=== PATIENT | male | born 1940 | race Caucasian/White ===

== ENCOUNTER 2018-04-23 17:24 | Inpatient (IN) | payer OTHER, MEDICARE ==
[2018-04-23] MEDS ORDERED: MAGNESIUM HYDROXIDE 8% 30 ML PO PRN (17:58)
[2018-04-23] MEDS ORDERED: MAGNES/ALUMIN/SIMET 30ML UCUP PO PRN (17:58)
[2018-04-23] MEDS ORDERED: ACETAMINOPHEN 500 MG TAB PO PRN (17:58)
[2018-04-23] MEDS: ALBUTEROL 2.5 MG/3 ML NEB SOL NEB SCH ×2 (18:00→20:08)
[2018-04-23] MEDS: IPRATROPIUM BROM 0.5MG/2.5ML NEB SCH ×2 (18:00→20:08)
[2018-04-23] MEDS: METHYLPREDNISOLONE 125 MG INJ IV SCH (18:23)
[2018-04-23] MEDS: Levofloxacin500mg IV 500 MG/100 ML BAG IV SCH (18:23)
--- NOTE | 2018-04-23 19:11 | RAD REPORT ---
EXAM DESCRIPTION: RAD - Chest Pa And Lat (2 Views) - 04/23/2018 6:41 pm CLINICAL HISTORY: COPD, shortness of breath COMPARISON: September 2011 TECHNIQUE: PA and lateral views of the chest were obtained. FINDINGS: The lungs are fibrotic as a baseline. Diaphragm is flattened with increased retrosternal s pace. Baseline fibrotic pattern has progressed since 2011. Patient has a large area of interstitial and alveolar opacification in the anterolateral left lung fi eld. This is a large lingula pneumonia. No right lung field pneumonia. A 6 mm nodular focus in the upper right lung field is probably focal scarring but can be monitored with follow-up chest film in 4 -6 months. Heart size is normal and central vasculature is within normal limits. No pleural effusion or pneumot horax seen. No acute bony finding noted. No aortic abnormality. IMPRESSION: Large lateral mid left lung field pneumonia superimposed on COPD. Fibrotic lung pattern has progressed since 2011. Small right upper lung field 6 mm nodule is probably scarring but can be monitored with follow-up yoseph st film in 4-6 months.
[2018-04-23 19:18] LABS: Absolute Lymphocytes (CBC) 1.2 K/uL (0.7-4.9); Absolute Monocytes 1.7 K/uL (0.1-1.3); Absolute Neutrophil 24.6 K/uL (1.8-8.0); Basophils % 0.1 % (0-1.3); Eosinophils % 0.3 % (0-4.4); Hematocrit 46.2 % (39.6-49.0); Lymphocytes % 4.4 % (15.3-44.8); MCH 34.4 pg (27.0-35.0); MCV 99.1 fL (80-100); MPV 9.6 fL (7.6-11.3); Monocytes % 6.1 % (3.3-12.3); RBC Red Blood Cell Count 4.67 M/uL (4.33-5.43)
[2018-04-23 19:28] LABS: Albumin 3.6 g/dL (3.4-5.0); Bilirubin Total 1.6 mg/dL (0.2-1.0); Potassium 3.7 mmol/L (3.5-5.1); Protein, Total 7.9 g/dL (6.4-8.2)
[2018-04-23 19:52] LABS: Blood Morphology Comment NOT SEEN (NOT SEEN); Platelet Estimate ADEQ; Platelets, Giant NOTED
[2018-04-23] MEDS ORDERED: POTASSIUM 25 MEQ EFFERV TAB PO ONE (20:00)
[2018-04-23] MEDS: GUAIFENESIN/DM 5 ML UCUP PO PRN (20:53)
[2018-04-23] MEDS ORDERED: ENOXAPARIN 40 MG/0.4 ML SQ SCH (21:00)
[2018-04-23] MEDS ORDERED: NA CHLORIDE 0.9% 1,000 ML IV SCH (21:00)
[2018-04-23 22:49] VITALS: BMI 26.3
[2018-04-23] MEDS: NA CHLORIDE 0.9% 1,000 ML IV SCH (23:00)
[2018-04-24] MEDS: METHYLPREDNISOLONE 125 MG INJ IV SCH ×4 (00:29→18:00)
--- NOTE | 2018-04-24 03:17 | HP ---
Date of Admission: 04/23/2018 Chief Complaint: Cough, congestion, shortness of breath. History Of Present Illness: A 77-year-old male patient with significant COPD problem called my offic e yesterday with complaints of shortness of breath and he was advised to go to emergency room, but ap parently patient decided not to go to emergency room. Today he called office again and talked to my office staff and informed office staff that he thinks he has sinus infection and requested appointmen t to come see me. After I evaluated him, decision was made to admit him to the hospital since I was concerned about pneumonia with COPD exacerbation. The patient has problem with cough, chest congesti on, coughing up greenish colored mucus with some streaks of blood, wheezing, shortness of breath, fev er, and feeling tired. All these symptoms have been going on in last few days, increasingly getting worse. After I evaluated him, I was concerned about pneumonia along with COPD exacerbation, so bolivar abdullahi was made to admit him to the hospital. Allergies: NO KNOWN ALLERGIES. Medications: Anoro Ellipta inhaler 1 puff daily, Celebrex 200 mg daily as needed for arthritis, levo cetirizine 5 mg daily as needed for allergy, aspirin 81 mg daily, montelukast 10 mg p.o. daily, multi vitamin daily, omeprazole 20 mg daily, Proventil inhaler 2 puffs every 4 hours as needed, verapamil E R 120 mg 1 capsule p.o. twice a day. Review of Systems: Constitutional: As mentioned above. Respiratory: As mentioned above. All other systems reviewed and negative. Past Surgical History: Significant for removal of melanoma from back in 2016, surgery for laceration of the right wrist in 1954, had colon cancer for which had partial colectomy in 2010, and had lower back surgery January 20, 2018. Social History: Prior history of smoking, not at present time. Use of alcohol negative. Family History: Significant for diabetes and atrial fibrillation. Past Medical History: Significant for type 2 diabetes mellitus, benign prostatic hypertrophy, hyperl ipidemia, colon cancer, gout, hypertension, allergic rhinitis, COPD. Physical Examination: Vital Signs: Temperature 98, pulse 116, respiratory rate 28, blood pressure 131/62, oxygen saturatio n 98%, height 5 feet 11 inches, weight 189 pounds. The patient, when he was seen at office prior to this admission, his oxygen saturation at office on 2 L nasal cannula oxygen was 88% to 89%. The ajit ent has home oxygen, but he was not using it, but in last 1 week or so he started using it since he s tarted having these problems. General: The patient appears weaker than normal, in mild respiratory distress. HEENT: Head atraumatic, normocephalic. Conjunctivae nonerythematous. Sclerae white. Mouth, no thr ush or edema noted. Ears/Nose, no mass, lesion, discharge noted. Neck: Supple. No JVD, lymph nodes, bruit, thyromegaly noted. Lungs: Presence of some rales noted in lower lung field with diminished air entry in left lower lung field. Heart: Normal heart sounds, no murmur or gallop. Abdomen: Soft, bowel sounds normal. No guarding, rigidity, tenderness, mass, hepatosplenomegaly, dis tention, or bruit noted. Extremities: No leg edema. No calf tenderness. Skin: No rash, ulcer, cellulitis. Lymphatics: No lymph node enlargement in neck, supraclavicular, infraclavicular region. Neuro: No focal neurological deficit. Chest: Unremarkable. External Genitalia: Deferred. Rectal: Deferred. Laboratory Data: White count 27.7, hemoglobin 16, platelets 212, 14% bands. Sodium 134, potassium 3 .7, chloride 95, bicarb 27, BUN 42, creatinine 2.80, glucose 147. Liver function tests: SGOT 71, to sim bilirubin 1.6, procalcitonin 0.42. Lactic acid level pending. Chest x-ray shows large left mid left lung pneumonia superimposed on COPD, fibrotic lung pattern progress since 2011, small right uppe r lung field 6 mm nodule. Impression: 1.Pneumonia. 2.Acute exacerbation of chronic obstructive pulmonary disease. 3.Acute renal failure. 4.Volume depletion. 5.Type 2 diabetes mellitus. 6.Hyperlipidemia. 7.Hypertension. 8.Gout. 9.Colon cancer. 10.Allergic rhinitis. Plan: Admit the patient to hospital for further evaluation and management of this problem. The ajit ent is appropriate for inpatient and is expected to spend 2 midnights in hospital. His BUN and creat inine on 04/14/2018 on outpatient basis was 18 and 0.89 respectively. Hemoglobin A1c was 5.1 at that time. White count was 6.6 on that particular day. There is significant change in all this lab data on today's blood work. The patient has significant pneumonia causing this exacerbation of chronic o bstructive pulmonary disease. We will go ahead and start deep venous thrombosis prophylaxis using Lo venox. Initially, he was started on Levaquin. Subsequently, after reviewing all the data, I have ad ded Zosyn. We will follow up on blood culture as well as sputum culture. IV steroid methylprednisol one was started. Nebulizer treatment will be given. Oxygen will be given per order. IV fluid was s tarted and I will see him tomorrow morning for followup. We will go ahead and order a CAT scan of th e chest without contrast during this admission. ZO/MODL Voice ID: [id number]
[2018-04-24] MEDS: ALBUTEROL 2.5 MG/3 ML NEB SOL NEB SCH ×6 (03:21→20:45)
[2018-04-24] MEDS: IPRATROPIUM BROM 0.5MG/2.5ML NEB SCH ×6 (03:21→20:45)
[2018-04-24 04:07] LABS: Absolute Monocytes 0.8 K/uL (0.1-1.3); Absolute Neutrophil 20.5 K/uL (1.8-8.0); Basophils % 0.1 % (0-1.3); Hematocrit 42.1 % (39.6-49.0); Lymphocytes % 4.6 % (15.3-44.8); MCH 34.8 pg (27.0-35.0); MCV 100.1 fL (80-100); MPV 9.2 fL (7.6-11.3); Monocytes % 3.5 % (3.3-12.3); RBC Red Blood Cell Count 4.21 M/uL (4.33-5.43)
[2018-04-24 04:33] LABS: Potassium 4.2 mmol/L (3.5-5.1)
[2018-04-24] MEDS: NA CHLORIDE 0.9% 1,000 ML IV SCH ×2 (05:39→09:00)
[2018-04-24 07:14] LABS: Urine Appearance TURBID; Urine Bilirubin NEGATIVE (NEG); Urine Blood 3+ (NEG); Urine Color DK YELLOW; Urine Glucose NEGATIVE (NEG); Urine Protein 1+ (NEG); Urine Urobilinogen 0.2 mg/dL (0.2-1.0)
[2018-04-24 07:23] LABS: Urine Microscopic Reflex ORDER UMIC
[2018-04-24 07:57] LABS: Urine Amorphous Sediment 2+ /HPF (NONE SEEN); Urine Bacteria NONE SEEN /HPF (NONE SEEN); Urine Culture Reflex Order NOT NEEDED; Urine Mucus HEAVY /HPF (NONE SEEN)
[2018-04-24] MEDS ORDERED: INFLUENZA VACCINE (for 3y+) 0.5 ML DOSE IMVAC ONE (08:00)
--- NOTE | 2018-04-24 10:26 | RAD REPORT ---
EXAM DESCRIPTION: CT - Thorax Wo Con - 04/24/2018 9:44 am CLINICAL HISTORY: sob COMPARISON: April 23 chest x-ray TECHNIQUE: Computed axial tomography of the chest was obtained. Contrast was not requested. All CT scans are performed using dose optimization technique as appropriate and may include automated exposure control or mA/KV adjustment according to patient size. FINDINGS: The evaluation of mediastinum, mona and vessels is limited secondary to lack of IV contras t administration. A left upper lobe consolidation measures approximately 8 centimeters. Mild left lower lobe consolidat ion. Right upper lobe granuloma with a mild bilateral pulmonary scarring. Moderate centrilobular emphysema No mediastinal or hilar lymphadenopathy is seen. A pleural effusion is not present. A pericardial effusion is not seen. Coronary arterial calcificatio ns are noted. IMPRESSION: Left upper lobe consolidation with mild left lower lobe opacities consistent with pneumo sussy. This should be followed until it is clear to exclude a post obstructive process/underlying mass COPD
[2018-04-24] MEDS: GUAIFENESIN/DM 5 ML UCUP PO PRN (15:53)
[2018-04-24] MEDS ORDERED: METOPROLOL TARTRATE 5 MG/5 ML INJ IV STA (16:52)
[2018-04-24] MEDS: Levofloxacin500mg IV 500 MG/100 ML BAG IV SCH (18:00)
[2018-04-24] MEDS: SOTALOL HCL 80 MG TAB PO SCH (18:07)
[2018-04-24] MEDS: PIPER/TAZO/NS 2.25gm 2.25 GM/50 ML BAG IVPB SCH (21:44)
[2018-04-24] MEDS: ENOXAPARIN 100 MG/ML SYR SQ SCH (21:45)
[2018-04-25] MEDS: NA CHLORIDE 0.9% 1,000 ML IV SCH ×3 (00:06→15:34)
[2018-04-25] MEDS: METHYLPREDNISOLONE 125 MG INJ IV SCH ×2 (00:06→05:10)
[2018-04-25] MEDS: GUAIFENESIN/DM 5 ML UCUP PO PRN ×3 (00:09→21:30)
[2018-04-25] MEDS: ALBUTEROL 2.5 MG/3 ML NEB SOL NEB SCH ×6 (00:20→19:57)
[2018-04-25] MEDS: IPRATROPIUM BROM 0.5MG/2.5ML NEB SCH ×6 (00:20→19:57)
[2018-04-25] MEDS: PIPER/TAZO/NS 2.25gm 2.25 GM/50 ML BAG IVPB SCH ×3 (02:31→17:59)
[2018-04-25 04:58] LABS: Absolute Lymphocytes (CBC) 0.5 K/uL (0.7-4.9); Absolute Monocytes 0.8 K/uL (0.1-1.3); Absolute Neutrophil 11.9 K/uL (1.8-8.0); Basophils % 0.1 % (0-1.3); Hematocrit 41.4 % (39.6-49.0); Lymphocytes % 3.8 % (15.3-44.8); MCH 34.1 pg (27.0-35.0); MCV 99.5 fL (80-100); MPV 9.6 fL (7.6-11.3); Monocytes % 6.1 % (3.3-12.3); RBC Red Blood Cell Count 4.16 M/uL (4.33-5.43)
[2018-04-25 05:07] LABS: Magnesium 2.6 mg/dL (1.8-2.4); Potassium 4.3 mmol/L (3.5-5.1)
[2018-04-25] MEDS: SOTALOL HCL 80 MG TAB PO SCH ×2 (05:08→18:00)
--- NOTE | 2018-04-25 07:19 | EKG ---
Test Date: 2018-04-24 Test Time: 16:17:45 Personal Support Worker: JAVED MEASUREMENT RESULTS: Intervals: Rate: 144 OK: QRSD: 86 QT: 266 QTc: 411 Ralls: P: OK: QRS: 61 T: -48 INTERPRETIVE STATEMENTS: Atrial fibrillation with rapid ventricular response Nonspecific ST and T wave abnormality, probably digitalis effect Abnormal ECG Compared to ECG 06/05/2010 13:21:45 ST (T wave) deviation now present Sinus bradycardia no longer present Electronically Signed On 04-25-18 07:19:01 INFORMATION SYSTEMS PROJECT MANAGER by Herbert Cary
[2018-04-25] MEDS: ENOXAPARIN 100 MG/ML SYR SQ SCH ×2 (09:00→20:29)
[2018-04-25] MEDS: predniSONE 20 MG TAB PO SCH ×2 (09:00→20:29)
--- NOTE | 2018-04-25 13:19 | CON ---
Attending Physician: Dr. Forte. Reason For Consult: AFib. History Of Present Illness: Mr. Ca developed AFib in the hospital, it happened to occur while he was taking an albuterol treatment. He is admitted for pneumonia. There seems to be an infiltrate in his left lung. He has had fevers, chills, cough, hemoptysis. He has a background of obstructive tommy ng disease. He has not smoked in more than [address] and chest x-ray indicate left upper and low er lobe opacities. We do not rule out that this is a mass with a postobstructive process. The patie nt has never had any heart disease. He takes lung treatments from his physicians, both Dr. Forte and the doctors at the [facility]. Medications: Outpatient medications have been omeprazole, Spiriva, albuterol, verapamil, acetaminoph en, aspirin, multivitamin, Claritin, celecoxib, iron fumarate, and Flonase. Physical Examination: General: 5 feet 11 inches, 189 pounds. HEENT: Normal. Lungs: Clear. Heart: Exam reveals an irregularly irregular rhythm. No significant murmur or gallop. Abdomen: Soft. Extremities: No edema. The patient is on enoxaparin 90 b.i.d. and sotalol 80 b.i.d. now. An echocardiogram is ordered. Impression: We should give the sotalol at least another 24 hours to work. If it has not reverted hi s rhythm back to normal, we can do a cardioversion. But at this point, we will stay with Lovenox, Be tapace and see how it turns out. He is asymptomatic with atrial fibrillation. His heart rate is close to 1 00 beats per minute. AMANDA/LULA Voice ID: [id number] Report ID: [id number]
--- NOTE | 2018-04-25 13:48 | ECHO ---
HEIGHT: 5 ft 11 in WEIGHT: 189 lb 0 oz DATE OF STUDY: 04/25/[address]: Rogers Forte MD 2-DIMENSIONAL: YES M.MODE: YES DOPPLER: YES COLOR FLOW: YES TDS: PORTABLE: DEFINITY: BUBBLE STUDY: DIAGNOSIS: ATRIAL FIBRILLATION CARDIAC HISTORY: CATHERIZATION: NO SURGERY: NO PROSTHETIC VALVE: NO PACEMAKER: NO MEASUREMENTS (cm) DIASTOLIC (NORMALS) SYSTOLIC (NORMALS) IVSd 1.0 (0.6-1.2) LA Diam 4.5 (1.9-4.0) LVEF 51% LVIDd 3.5 (3.5-5.7) LVIDs 2.6 (2.0-3.5) %FS 26% LVPWd 1.2 (0.6-1.2) Ao Diam 3.1 (2.0-3.7) 2 DIMENSIONAL ASSESSMENT: RIGHT ATRIUM: DILATED LEFT ATRIUM: DILATED RIGHT VENTRICLE: NORMAL LEFT VENTRICLE: NORMAL TRICUSPID VALVE: NORMAL MITRAL VALVE: NORMAL PULMONIC VALVE: NORMAL AORTIC VALVE: NORMAL PERICARDIAL EFFUSION: NONE AORTIC ROOT: NORMAL LEFT VENTRICULAR WALL MOTION: NORMAL DOPPLER/COLOR FLOW: MILD TRICUSPID REGURGITATION. MILD PULMONARY HYPERTENSION. ESTIMATED RIGHT VENTRICULAR SYSTOLIC PRESSURE 38 mmHg. COMMENTS: NORMAL LEFT VENTRICULAR EJECTION FRACTION. DILATED LEFT AND RIGHT ATRIUM. MILD TRICUSPID REGURGITATION. MILD PULMONARY HYPERTENSION. ATRIAL FIBRILLATION. 120 BEATS PER MINUTE. TECHNOLOGIST: VEE ARTEAGA
[2018-04-25] MEDS: Levofloxacin500mg IV 500 MG/100 ML BAG IV SCH (18:01)
--- NOTE | 2018-04-25 18:25 | PN ---
Date of Progress Note: 04/24/2018 Subjective: The patient was seen this morning for followup. No new complaints or problems reported. He feels little bit better compared to yesterday. Objective: Vital Signs: Reviewed. HEENT: Unremarkable. Lungs: No evidence of any wheezing, but has diminished air entry in the left lower lung field, uncha nged from yesterday. Not using accessory muscles of respiration. Some rales noted in lung. Heart: Sounds normal. Abdomen: Soft. Bowel sounds normal. No guarding, rigidity, tenderness, or distention. Extremities: No leg edema. Laboratory Data: White count 22.3 today, hemoglobin 14.6, platelets 192. Sodium 136, potassium 4.2, chloride 98, bicarb 29, BUN 47, creatinine 2.20, glucose 179. Impression: 1.Pneumonia. 2.Acute exacerbation of chronic obstructive pulmonary disease. 3.Acute renal failure, improving. Plan: We will go ahead and continue current medications. Continue IV fluid, current antibiotics. Pankaj alfonso up on culture results. After I saw him in the morning, later on in the time or so patient went into atrial fibrillation with rapid ventricular rate. His heart rate was around 150 systolic, blood pressure was around 140. Lopressor 5 mg slow IV push was ordered x1 dose. Cardiology consultation was ordered. We will get echocardiogram done tomorrow and Lovenox dose was increased from prophylactic dose to therapeutic dose. I will see him tomorrow for followup. ZO/MODL Voice ID: [id number] Report ID: [id number]
[2018-04-25] MEDS ORDERED: HOME MED 1 EA UNK (Omeprazole [Omeprazole] 20 MG) PO SCH (21:00)
--- NOTE | 2018-04-25 23:39 | PN ---
Date of Progress Note: 04/25/2018 Subjective: The patient was seen this morning for followup. No new complaints, problems reported by patient. Overall he feels better. Objective: Vital Signs: Reviewed. HEENT: Unremarkable. Lungs: Clear to auscultation on the right side. Left side, improved air entry in the left lung fiel d. Not using any accessory muscles of respiration. Heart: Sounds normal. Abdomen: Soft. Bowel sounds normal. No guarding, rigidity, tenderness, or distention. Extremities: No leg edema. Laboratory Data: The patient's blood culture is growing gram-positive cocci. Definite identificatio n and sensitivity result pending. White count down to 13.2, hemoglobin 14.2, platelets 223. Sodium 140, potassium 4.3, chloride 106, bicarb 27, BUN 40, creatinine 1.10, glucose 166. Procalcitonin lev el is 8.04 which is much better than day before yesterday. Impression: 1.Pneumonia. 2.Acute exacerbation of chronic obstructive pulmonary disease. 3.Sepsis. 4.Acute renal failure. 5.Atrial fibrillation. Plan: Patient had echocardiogram done today per order, shows ejection fraction normal at 51%. Cardi ology consultation is appreciated. Head Banquet Waitress has started the patient on sotalol and we will go ah ead and continue to follow with reimbursement liaison. I will see him tomorrow for followup. I have disconti nued his IV steroid and oral prednisone was started. We will continue Lovenox 90 mg subcutaneous injection every 12 hours and I will see him jeffry orrow for followup. ZO/MODL Voice ID: [id number] Report ID: [id number]
[2018-04-26] MEDS: ALBUTEROL 2.5 MG/3 ML NEB SOL NEB SCH ×6 (00:37→20:26)
[2018-04-26] MEDS: IPRATROPIUM BROM 0.5MG/2.5ML NEB SCH ×6 (00:37→20:26)
[2018-04-26] MEDS: PIPER/TAZO/NS 2.25gm 2.25 GM/50 ML BAG IVPB SCH ×3 (01:04→17:00)
[2018-04-26] MEDS: NA CHLORIDE 0.9% 1,000 ML IV SCH ×3 (01:04→20:04)
[2018-04-26] MEDS: SOTALOL HCL 80 MG TAB PO SCH ×2 (05:02→18:12)
[2018-04-26] MEDS: PANTOPRAZOLE 40MG TABLET PO SCH ×2 (07:30→14:42)
[2018-04-26] MEDS: ENOXAPARIN 100 MG/ML SYR SQ SCH ×2 (09:47→20:05)
[2018-04-26] MEDS ORDERED: FLUMAZENIL 0.1 MG/ML (5 mL VIAL) IV ONE (10:38)
[2018-04-26] MEDS ORDERED: MIDAZOLAM HCL 2 MG/2 ML INJ ONE ×2 (10:38)
--- NOTE | 2018-04-26 12:22 | PN ---
Date of Progress Note: 04/26/2018 Subjective: The patient was seen this morning for followup. Overall, he feels better. He is not co ughing up any mucus as he says. Breathing seems to be better. Still has rapid and irregular heartbe ats due to atrial fibrillation. No nausea, no vomiting. Objective: Vital signs: Reviewed. HEENT: Unremarkable. Lungs: Clear to auscultation. No rhonchi or rales. Improved air entry in the left lower lung zones , even compared to yesterday he has better air entry today. Not using any accessory muscles of respi ration. Heart: Sounds normal. Abdomen: Soft. Bowel sounds normal. No guarding, rigidity, tenderness, or distention. Extremities: No leg edema. Laboratory Data: Blood culture gram-positive cocci. Definite identification and sensitivity result pending. Impression: 1.Pneumonia. 2.Atrial fibrillation with rapid ventricular rate. 3.Acute exacerbation of chronic obstructive pulmonary disease. 4.Acute renal failure. Plan: We will go ahead and repeat blood work tomorrow. We will get a chest x-ray today. Dr. Cary is planning to do cardioversion today. The patient is n.p.o. for that. We will continue current an tibiotics and final choice of antibiotic will depend on blood culture results which is pending. ZO/MODL Voice ID: [id number] Report ID: [id number]
[2018-04-26] MEDS ORDERED: NA CHLORIDE 0.9% 500 ML IV ONE (12:26)
[2018-04-26] MEDS: GUAIFENESIN/DM 5 ML UCUP PO PRN ×2 (14:41→20:07)
[2018-04-26] MEDS: predniSONE 20 MG TAB PO SCH ×2 (14:42→20:05)
[2018-04-26] MEDS: Levofloxacin500mg IV 500 MG/100 ML BAG IV SCH (18:11)
--- NOTE | 2018-04-26 19:55 | RAD REPORT ---
EXAM DESCRIPTION: RAD - Chest Pa And Lat (2 Views) - 04/26/2018 7:46 pm CLINICAL HISTORY: pneumonia Chest pain. COMPARISON: Chest Pa And Lat (2 Views) dated 04/23/2018; CHEST PA AND LAT 2 VIEW dated 10/04/2011; CH EST PA AND LAT 2 VIEW dated 06/05/2010; CHEST PA AND LAT 2 VIEW dated 09/01/2004 FINDINGS: Prominent COPD is again noted. The left mid lung pneumonia previously noted has mildly imp roved. The heart is normal in size. No displaced fractures. Aortic atherosclerosis. IMPRESSION: Mild improvement in left lung pneumonia since prior study.
--- NOTE | 2018-04-26 21:58 | OP ---
Surgeon: Herbert Cary MD Procedure: Direct current cardioversion. Indication: Persistent atrial fibrillation. Procedure In Detail: The patient received Lovenox since the onset of atrial fibrillation and Betapac e. He had received those within a few hours of the procedure. He was transferred to the ICU tempora rily sedated with Versed 5 mg IV. Once titrated to an adequate level of sedation, anterior-posterior paddles were on the patient's chest. A single shock of 200 joules was given. This reverted his rhy thm to sinus. No complications from the procedure. AMANDA/LULA Voice ID: [id number] Report ID: [id number]
[2018-04-27] MEDS: PIPER/TAZO/NS 2.25gm 2.25 GM/50 ML BAG IVPB SCH ×3 (00:19→16:22)
[2018-04-27] MEDS: ALBUTEROL 2.5 MG/3 ML NEB SOL NEB SCH ×6 (01:03→20:00)
[2018-04-27] MEDS: IPRATROPIUM BROM 0.5MG/2.5ML NEB SCH ×6 (01:04→20:00)
[2018-04-27] MEDS: SOTALOL HCL 80 MG TAB PO SCH ×2 (05:03→17:23)
[2018-04-27 06:29] LABS: Absolute Lymphocytes (CBC) 0.6 K/uL (0.7-4.9); Absolute Monocytes 1.2 K/uL (0.1-1.3); Absolute Neutrophil 10.1 K/uL (1.8-8.0); Basophils % 0.1 % (0-1.3); Hematocrit 42.2 % (39.6-49.0); Lymphocytes % 5.3 % (15.3-44.8); MCH 34.3 pg (27.0-35.0); MCV 101.4 fL (80-100); MPV 9.5 fL (7.6-11.3); Monocytes % 9.8 % (3.3-12.3); RBC Red Blood Cell Count 4.17 M/uL (4.33-5.43)
[2018-04-27] MEDS: NA CHLORIDE 0.9% 1,000 ML IV SCH (06:48)
[2018-04-27 06:55] LABS: Magnesium 2.6 mg/dL (1.8-2.4); Potassium 4.3 mmol/L (3.5-5.1)
[2018-04-27] MEDS: PANTOPRAZOLE 40MG TABLET PO SCH (08:29)
[2018-04-27] MEDS: predniSONE 20 MG TAB PO SCH ×2 (08:30→20:42)
[2018-04-27] MEDS: ENOXAPARIN 100 MG/ML SYR SQ SCH ×2 (08:30→20:42)
[2018-04-27] MEDS: AMLODIPINE 5 MG TAB PO SCH (10:25)
[2018-04-27] MEDS ORDERED: FUROSEMIDE 20 MG/ 2ML VIAL IV ONE ×2 (11:00→17:00)
--- NOTE | 2018-04-27 16:12 | PN ---
Date of Progress Note: 04/27/2018 Subjective: The patient was seen this morning for followup and he is still coughing up some colored mucus which is greenish in color with some streaks of blood in it. The patient reported today that aldo hillman is not able to walk as much as he did without getting short of breath. The patient says that on rst day he was able to make the whole [place] on the hallway, on the floor; next day, only half a circ le; and today just from his room to the corner and had to come back because of shortness of breath. His oxygen saturation drops also when he tries to ambulate and gets short of breath. Yesterday, he d id have cardioversion and he is in sinus rhythm now. Objective: Vital Signs: Reviewed. HEENT: Examination unremarkable. Lungs: Clear to auscultation. No rhonchi or rales. Not in respiratory distress. Improved air entr y in left lung, unchanged from yesterday. Heart: Sounds normal. Abdomen: Soft. Bowel sounds normal. No guarding, rigidity, tenderness, or distention. Extremities: No leg edema. Laboratory Data: White count 11.9, hemoglobin 14.3, platelets 261. Sodium 139, potassium 4.3, chlor karmen 104, bicarb 31, BUN 38, creatinine 0.90. Glucose 142. Impression: 1.Pneumonia. 2.Acute exacerbation of chronic obstructive pulmonary disease. 3.Acute renal failure, improved. 4.Paroxysmal atrial fibrillation, status post cardioversion to normal sinus rhythm. 5.Hypertension. Plan: The patient's blood pressure was elevated this morning. We will go ahead and start him on aml odipine 5 mg p.o. daily. Continue his sotalol and Lovenox per order. We will go ahead and continue his current antibiotics. His repeat chest x-ray from yesterday shows improvement in pneumonia. We w ill repeat blood work tomorrow including procalcitonin. We will discontinue his IV fluid and give hi m 1 dose of Lasix IV 20 mg today, and we will decide whether he needs more Lasix tomorrow or not. De tails and plan of treatment discussed with the patient. His blood culture, which was reported as gra m-positive cocci, is false positive, a skin contaminant. ZO/MODL Voice ID: [id number] Report ID: [id number]
[2018-04-27] MEDS: Levofloxacin500mg IV 500 MG/100 ML BAG IV SCH (16:50)
--- NOTE | 2018-04-27 16:52 | EKG ---
Test Date: 2018-04-26 Test Time: 11:24:58 Mineral Surveyor: OG MEASUREMENT RESULTS: Intervals: Rate: 78 TX: 186 QRSD: 94 QT: 394 QTc: 449 [place]: P: 70 TX: 186 QRS: 66 T: 67 INTERPRETIVE STATEMENTS: Normal sinus rhythm Normal ECG Compared to ECG 04/24/2018 16:17:45 Atrial fibrillation no longer present ST (T wave) deviation no longer present Electronically Signed On 04-27-18 16:50:42 STUDY ABROAD ADVISOR by Herbert Cary
[2018-04-27] MEDS: GUAIFENESIN/DM 5 ML UCUP PO PRN (20:44)
[2018-04-28] MEDS: PIPER/TAZO/NS 2.25gm 2.25 GM/50 ML BAG IVPB SCH ×3 (01:36→17:18)
[2018-04-28] MEDS: ALBUTEROL 2.5 MG/3 ML NEB SOL NEB SCH ×6 (02:15→20:00)
[2018-04-28] MEDS: IPRATROPIUM BROM 0.5MG/2.5ML NEB SCH ×6 (02:15→20:00)
[2018-04-28 05:01] LABS: Absolute Lymphocytes (CBC) 0.7 K/uL (0.7-4.9); Absolute Monocytes 0.7 K/uL (0.1-1.3); Absolute Neutrophil 10.4 K/uL (1.8-8.0); Basophils % 0.1 % (0-1.3); Hematocrit 44.5 % (39.6-49.0); Lymphocytes % 5.6 % (15.3-44.8); MCH 33.9 pg (27.0-35.0); MCV 98.9 fL (80-100); MPV 9.4 fL (7.6-11.3); Monocytes % 6.1 % (3.3-12.3)
[2018-04-28 05:11] LABS: BUN Blood Urea Nitrogen 31 mg/dL (7-18); Bicarbonate 40 mmol/L (21-32); Glucose Level 146 mg/dL (74-106); Magnesium 2.2 mg/dL (1.8-2.4); Potassium 3.8 mmol/L (3.5-5.1); Sodium Level 138 mmol/L (136-145)
[2018-04-28 06:11] LABS: Blood Morphology Comment NOT SEEN (NOT SEEN); Platelet Estimate ADEQ
[2018-04-28] MEDS: SOTALOL HCL 80 MG TAB PO SCH ×2 (06:36→17:20)
[2018-04-28] MEDS: PANTOPRAZOLE 40MG TABLET PO SCH (07:30)
[2018-04-28] MEDS ORDERED: MAGNESIUM HYDROXIDE 8% 30 ML PO ONE (07:54)
[2018-04-28] MEDS ORDERED: POTASSIUM 25 MEQ EFFERV TAB PO ONE (09:00)
[2018-04-28] MEDS ORDERED: DULERA 200/5 (MOMETASONE/FORMOTEROL) INHALER IH SCH (09:00)
[2018-04-28] MEDS: AMLODIPINE 5 MG TAB PO SCH (09:16)
[2018-04-28] MEDS: predniSONE 20 MG TAB PO SCH ×2 (09:17→20:56)
[2018-04-28] MEDS: ENOXAPARIN 100 MG/ML SYR SQ SCH ×2 (09:17→22:42)
--- NOTE | 2018-04-28 10:24 | RAD REPORT ---
EXAM DESCRIPTION: Duane Segundo (2 Views)04/28/2018 9:32 am CLINICAL HISTORY: Cough COMPARISON: April 26 FINDINGS: Mild improvement in the left pneumonia. No other change noted IMPRESSION: Mild improvement left pneumonia
[2018-04-28] MEDS: Levofloxacin500mg IV 500 MG/100 ML BAG IV SCH (17:48)
[2018-04-28] MEDS: SYMBICORT 160-4.5 MCG INHALER IH SCH (20:57)
[2018-04-29] MEDS: PIPER/TAZO/NS 2.25gm 2.25 GM/50 ML BAG IVPB SCH ×3 (01:06→17:59)
--- NOTE | 2018-04-29 01:35 | PN ---
Date of Progress Note: 04/28/2018 Subjective: The patient was seen this morning for followup. He does not feel any better than yester day. Still has lot of cough, mucus production, and shortness of breath like he described yesterday. No new complaints, problems reported. The patient reported also that he had only 2 bowel movements since he has been in hospital. No abdominal pain, nausea, vomiting. Objective: Vital Signs: Reviewed. HEENT: Unremarkable. Lungs: No rhonchi or rales. Heart: Sounds normal. Abdomen: Soft. Bowel sounds normal. No guarding, rigidity, tenderness, or distention. Extremities: No leg edema. Laboratory Data: White count 11.8, hemoglobin 15.2, platelets 288. Sodium 138, potassium 3.8, chlor karmen 93, bicarb 40, BUN 31, creatinine 0.80, glucose 146, procalcitonin 0.62. Chest x-ray, improvemen t in pneumonia. Impression: 1.Pneumonia. 2.Acute exacerbation of chronic obstructive pulmonary disease. 3.Paroxysmal atrial fibrillation. 4.Hypertension. Plan: We will go ahead and continue current antibiotic. The patient is improving well as far as rad iological improvement is concerned. We will continue Lovenox per order. Continue current antihypert ensive medication including amlodipine per order and continue current antibiotic. The patient is on prednisone 20 mg twice a day. We will continue that, continue sotalol per order. We will go ahead a nd add to inhaler 1 Spiriva and other inhaler is Dulera. We will see him tomorrow for followup. Ambulation was encouraged. ZO/MODL Voice ID: [id number] Report ID: [id number]
[2018-04-29] MEDS: IPRATROPIUM BROM 0.5MG/2.5ML NEB SCH ×6 (04:00→20:00)
[2018-04-29] MEDS: ALBUTEROL 2.5 MG/3 ML NEB SOL NEB SCH ×6 (04:00→20:00)
[2018-04-29] MEDS: SOTALOL HCL 80 MG TAB PO SCH ×2 (06:09→18:00)
[2018-04-29 07:22] LABS: BUN Blood Urea Nitrogen 21 mg/dL (7-18); Glucose Level 120 mg/dL (74-106); Potassium 3.7 mmol/L (3.5-5.1); Sodium Level 138 mmol/L (136-145)
[2018-04-29 07:24] LABS: Bicarbonate 43 mmol/L (21-32)
[2018-04-29] MEDS: POTASSIUM 25 MEQ EFFERV TAB PO ONE ×2 (07:58→10:37)
[2018-04-29] MEDS: SPIRIVA HANDIHALER 18 MCG IH SCH (09:00)
[2018-04-29] MEDS: SYMBICORT 160-4.5 MCG INHALER IH SCH ×2 (09:00→20:07)
[2018-04-29] MEDS: ENOXAPARIN 100 MG/ML SYR SQ SCH ×2 (10:37→20:06)
[2018-04-29] MEDS: predniSONE 20 MG TAB PO SCH ×2 (10:38→20:06)
[2018-04-29] MEDS: acetaZOLAMIDE 250 MG TAB PO SCH (10:38)
[2018-04-29] MEDS: AMLODIPINE 5 MG TAB PO SCH (10:38)
[2018-04-29] MEDS: PANTOPRAZOLE 40MG TABLET PO SCH (10:38)
--- NOTE | 2018-04-29 13:43 | PN ---
Date of Progress Note: 04/29/2018 Mr. Ca had been admitted with pneumonia, COPD exacerbation, and renal failure. He had atrial fibr illation. He had a cardioversion on 04/26/2018. He remained on sotalol and Lovenox for now. He rem ains in sinus rhythm. He is feeling good. No complaint. I feel comfortable with him going home on sotalol. I think it may be reasonable to put him on one of those Novel anticoagulants for now, and lawson hillman will decide on continuation of that therapy in the future. He can follow up with us in the next 2 weeks. WIN/LULA Voice ID: [id number] Report ID: [id number]
[2018-04-29] MEDS: Levofloxacin500mg IV 500 MG/100 ML BAG IV SCH (18:00)
[2018-04-29] MEDS: ALPRAZOLAM 0.25 MG TABLET PO SCH (20:06)
[2018-04-30] MEDS: PIPER/TAZO/NS 2.25gm 2.25 GM/50 ML BAG IVPB SCH ×3 (00:03→17:09)
--- NOTE | 2018-04-30 01:05 | PN ---
Date of Progress Note: 04/29/2018 Subjective: The patient was seen this morning for a followup. No new complaints, problems reported by him except he has reported that yesterday, first half of the day his breathing was better, he ambu lated better and later on started to have more cough, congestion and breathing difficulty. He coughs up some mucus which is significantly better now than before and hemoptysis has almost resolved. Objective: Vital signs: Reviewed. HEENT: Examination unremarkable. Lungs: Clear to auscultation. No rhonchi. No rales. Heart: Sounds normal. Abdomen: Soft. Bowel sounds normal. No guarding, rigidity, tenderness, distention. Extremities: No leg edema. Laboratory Data: Sodium 138, potassium 3.7, chloride 89, bicarb 43, BUN 21, creatinine 0.80, glucose 120. Assessment: 1.Pneumonia. 2.Acute exacerbation of chronic obstructive pulmonary disease. 3.Paroxysmal atrial fibrillation. 4.Hypertension. 5.Metabolic alkalosis. Plan: We will continue current inhaler, oxygen nebulizer treatment, antibiotics, Lovenox per order a nd the patient has metabolic alkalosis. We will not give any Lasix. He got 2 doses over the weekend and the patient and his both reported that he felt a little bit better when he took Lasix. So instead of Lasix, we will go ahead and give him acetazolamide considering his metabolic alkalosis pro blem. He is requesting some medication to help him sleep as he is not getting much rest at nighttime and alprazolam was ordered. I will see him tomorrow for followup. ZO/MODL Voice ID: [id number] Report ID: [id number]
[2018-04-30] MEDS: ALBUTEROL 2.5 MG/3 ML NEB SOL NEB SCH ×7 (04:00→23:25)
[2018-04-30] MEDS: IPRATROPIUM BROM 0.5MG/2.5ML NEB SCH ×7 (04:00→23:25)
[2018-04-30] MEDS ORDERED: POTASSIUM CL SA 10 MEQ TAB PO ONE (05:41)
[2018-04-30] MEDS: SOTALOL HCL 80 MG TAB PO SCH ×2 (06:33→18:11)
[2018-04-30] MEDS: PANTOPRAZOLE 40MG TABLET PO SCH (08:00)
[2018-04-30] MEDS: AMLODIPINE 5 MG TAB PO SCH (08:36)
[2018-04-30] MEDS: ENOXAPARIN 100 MG/ML SYR SQ SCH ×2 (08:37→20:31)
[2018-04-30] MEDS: acetaZOLAMIDE 250 MG TAB PO SCH (08:37)
[2018-04-30] MEDS: predniSONE 20 MG TAB PO SCH ×2 (08:37→20:30)
[2018-04-30] MEDS: SPIRIVA HANDIHALER 18 MCG IH SCH (08:39)
[2018-04-30] MEDS: SYMBICORT 160-4.5 MCG INHALER IH SCH ×2 (08:39→20:31)
[2018-04-30] MEDS: Levofloxacin500mg IV 500 MG/100 ML BAG IV SCH (18:12)
[2018-04-30] MEDS: ALPRAZOLAM 0.25 MG TABLET PO SCH (20:31)
--- NOTE | 2018-05-01 00:09 | PN ---
Date of Progress Note: 04/30/2018 Subjective: Patient was seen this morning for followup. His was present with him at bedside. Overall, he feels better. Yesterday he had a better day, ambulated much better than before, and afte r using alprazolam last night he slept much better than last few nights. He still had intermittent s leep last night even with alprazolam, but it was much better than last few nights. Objective: Vital Signs: Reviewed. HEENT: Examination unremarkable. Lungs: Clear to auscultation. Heart: Sounds normal. Abdomen: Soft. Bowel sounds normal. No guarding, rigidity, tenderness, or distention. Extremities: No leg edema. Impression: 1.Pneumonia. 2.Acute exacerbation of chronic obstructive pulmonary disease. 3.Hypertension. 4.Paroxysmal atrial fibrillation. 5.Metabolic alkalosis. Plan: We will go ahead and continue acetazolamide 250 mg daily, started yesterday. Continue Lovenox and antibiotics. Ambulation was encouraged with physical therapy. Continue steroid and nebulizer t reatment and inhaler per order. I will see him tomorrow for followup. Possible discharge hopefully by this weekend. ZO/MODL Voice ID: [id number] Report ID: [id number]
[2018-05-01] MEDS ORDERED: NA CHLORIDE 0.9% 100 ML ONE (00:13)
[2018-05-01] MEDS: PIPER/TAZO/NS 2.25gm 2.25 GM/50 ML BAG IVPB SCH ×3 (00:19→17:09)
[2018-05-01] MEDS: IPRATROPIUM BROM 0.5MG/2.5ML NEB SCH ×6 (04:00→23:52)
[2018-05-01] MEDS: ALBUTEROL 2.5 MG/3 ML NEB SOL NEB SCH ×6 (04:00→23:52)
[2018-05-01 04:49] LABS: Absolute Monocytes 0.5 K/uL (0.1-1.3); Absolute Neutrophil 6.8 K/uL (1.8-8.0); Basophils % 0.2 % (0-1.3); Eosinophils % 0.2 % (0-4.4); Hematocrit 46.2 % (39.6-49.0); Lymphocytes % 11.9 % (15.3-44.8); MCH 34.6 pg (27.0-35.0); MCV 100.3 fL (80-100); MPV 8.8 fL (7.6-11.3); Monocytes % 5.7 % (3.3-12.3); RBC Red Blood Cell Count 4.61 M/uL (4.33-5.43)
[2018-05-01] MEDS: GUAIFENESIN/DM 5 ML UCUP PO PRN ×3 (05:02→21:10)
[2018-05-01] MEDS: SOTALOL HCL 80 MG TAB PO SCH ×2 (05:02→18:04)
[2018-05-01 05:22] LABS: Magnesium 2.4 mg/dL (1.8-2.4)
[2018-05-01] MEDS: PANTOPRAZOLE 40MG TABLET PO SCH (08:09)
[2018-05-01] MEDS: acetaZOLAMIDE 250 MG TAB PO SCH (09:54)
[2018-05-01] MEDS: AMLODIPINE 5 MG TAB PO SCH (09:54)
[2018-05-01] MEDS: predniSONE 20 MG TAB PO SCH (09:55)
[2018-05-01] MEDS: SPIRIVA HANDIHALER 18 MCG IH SCH (09:55)
[2018-05-01] MEDS: SYMBICORT 160-4.5 MCG INHALER IH SCH ×2 (09:56→20:41)
[2018-05-01] MEDS: RIVAROXABAN 10 MG TABLET PO SCH (17:09)
[2018-05-01] MEDS: Levofloxacin500mg IV 500 MG/100 ML BAG IV SCH (18:05)
[2018-05-01] MEDS: ALPRAZOLAM 0.25 MG TABLET PO SCH (20:41)
[2018-05-02] MEDS: PIPER/TAZO/NS 2.25gm 2.25 GM/50 ML BAG IVPB SCH ×3 (01:17→17:57)
--- NOTE | 2018-05-02 02:05 | PN ---
Date of Progress Note: 05/01/2018 Subjective: The patient was seen this morning for followup. He was lying in bed, not in distress. was with him at bedside. He slept very well last night using medication, alprazolam. Yesterday , he did ambulate well with physical therapy. Still continues to have some cough, congestion, shortn ess of breath, but overall slowly improving. Objective: Vital Signs: Reviewed. HEENT: Unremarkable. Lungs: Clear to auscultation. No rhonchi or rales. Heart: Sounds normal. Abdomen: Soft, bowel sounds normal. No guarding, rigidity, tenderness, distention. Extremities: No leg edema. Laboratory Data: White count 8.3, hemoglobin 16, platelets 349. Sodium 138, potassium 4, chloride 9 9, bicarb 36, BUN 23, creatinine 1, glucose 172. Impression: 1.Pneumonia. 2.Acute exacerbation of chronic obstructive pulmonary disease. 3.Hypertension. 4.Paroxysmal atrial fibrillation. Plan: We will go ahead and continue current medication antibiotics, discontinue Lovenox injection, s tart Xarelto. We will go ahead and reduce prednisone dose to 20 mg daily. Ambulation was encouraged . We will continue current management and possible discharge to go home over the weekend depending on condition tomorrow. We will plan to repeat chest x-ray. ZO/MODL Voice ID: [id number] Report ID: [id number]
[2018-05-02] MEDS: ALBUTEROL 2.5 MG/3 ML NEB SOL NEB SCH ×6 (04:00→23:35)
[2018-05-02] MEDS: IPRATROPIUM BROM 0.5MG/2.5ML NEB SCH ×6 (04:00→23:35)
[2018-05-02] MEDS: SOTALOL HCL 80 MG TAB PO SCH ×2 (05:37→17:58)
[2018-05-02 06:22] LABS: Magnesium 2.3 mg/dL (1.8-2.4); Potassium 3.9 mmol/L (3.5-5.1)
[2018-05-02] MEDS ORDERED: POTASSIUM CL SA 10 MEQ TAB PO ONE (06:29)
[2018-05-02] MEDS: PANTOPRAZOLE 40MG TABLET PO SCH (07:31)
[2018-05-02] MEDS: AMLODIPINE 5 MG TAB PO SCH (12:02)
[2018-05-02] MEDS: acetaZOLAMIDE 250 MG TAB PO SCH (12:03)
[2018-05-02] MEDS: predniSONE 20 MG TAB PO SCH (12:03)
[2018-05-02] MEDS: SYMBICORT 160-4.5 MCG INHALER IH SCH ×2 (12:04→20:43)
[2018-05-02] MEDS: SPIRIVA HANDIHALER 18 MCG IH SCH (12:04)
--- NOTE | 2018-05-02 13:19 | RAD REPORT ---
EXAM DESCRIPTION: RAD - Chest Pa And Lat (2 Views) - 05/02/2018 1:13 pm CLINICAL HISTORY: pneumonia Chest pain. COMPARISON: Chest Pa And Lat (2 Views) dated 04/28/2018; Chest Pa And Lat (2 Views) dated 04/26/2018; Chest Pa And Lat (2 Views) dated 04/23/2018; CHEST PA AND LAT 2 VIEW dated 10/04/2011 FINDINGS: Emphysematous changes are present throughout the lungs. Poorly defined linear opacities in the left lower lung appear mildly improved. The heart is normal in size. No displaced fractures. IMPRESSION: COPD with mild improvement in left lower lung lung opacities likely representing pneumon ia.
--- NOTE | 2018-05-02 14:49 | PN ---
Date of Progress Note: 05/02/2018 Subjective: The patient was seen this morning for followup. He is feeling much better today. Some cough, congestion, coughing up some mucus, but overall feeling better in last couple of days. Objective: Vital Signs: Reviewed. HEENT: Unremarkable. Lungs: Clear to auscultation. Heart: Sounds normal. Abdomen: Soft. Bowel sounds normal. No guarding, rigidity, tenderness, distention. Extremities: No leg edema. Laboratory Data: Sodium 142, potassium 3.9, chloride 102, bicarb 38, BUN 20, creatinine 1.10, glucos e 128, magnesium 2.3. Impression: 1.Pneumonia. 2.Acute exacerbation of chronic obstructive pulmonary disease. 3.Paroxysmal atrial fibrillation. 4.Hypertension. Plan: We will continue current medications. Continue current antibiotic, steroid, oxygen nebulizer treatment. Continue current anticoagulant medication. Ambulation was encouraged. We will repeat est x-ray today. Possible discharge to go home tomorrow or day after tomorrow depending on x-ray and the patient's condition. ZO/MODL Voice ID: [id number] Report ID: [id number]
[2018-05-02] MEDS: RIVAROXABAN 10 MG TABLET PO SCH (17:57)
[2018-05-02] MEDS: Levofloxacin500mg IV 500 MG/100 ML BAG IV SCH (18:02)
[2018-05-02] MEDS: ALPRAZOLAM 0.25 MG TABLET PO SCH (20:42)
[2018-05-02] MEDS: GUAIFENESIN/DM 5 ML UCUP PO PRN (20:42)
[2018-05-03] MEDS: PIPER/TAZO/NS 2.25gm 2.25 GM/50 ML BAG IVPB SCH ×2 (00:46→08:40)
[2018-05-03] MEDS: ALBUTEROL 2.5 MG/3 ML NEB SOL NEB SCH ×3 (03:25→11:00)
[2018-05-03] MEDS: IPRATROPIUM BROM 0.5MG/2.5ML NEB SCH ×3 (03:25→11:00)
[2018-05-03] MEDS: GUAIFENESIN/DM 5 ML UCUP PO PRN ×2 (04:10→09:07)
[2018-05-03] MEDS: SOTALOL HCL 80 MG TAB PO SCH (06:17)
[2018-05-03 08:07] VITALS: BP 129/60; TEMP 96.4
[2018-05-03] MEDS: AMLODIPINE 5 MG TAB PO SCH (08:35)
[2018-05-03] MEDS: PANTOPRAZOLE 40MG TABLET PO SCH (08:35)
[2018-05-03] MEDS: predniSONE 20 MG TAB PO SCH (08:36)
[2018-05-03] MEDS: SPIRIVA HANDIHALER 18 MCG IH SCH (08:36)
[2018-05-03] MEDS: SYMBICORT 160-4.5 MCG INHALER IH SCH (08:37)
[2018-05-03] MEDS: acetaZOLAMIDE 250 MG TAB PO SCH (09:07)
[2018-05-03] MEDS ORDERED: INFLUENZA VACCINE (for 3y+) 0.5 ML DOSE IMVAC ONE (12:00)
[2018-05-03 12:38] VITALS: O2SAT 93
--- NOTE | 2018-05-04 03:31 | DS ---
Date of Discharge: 05/03/2018 Disposition: Discharged to go home. Physical Examination: HEENT: Unremarkable. Lungs: Clear to auscultation. No rhonchi. No rales. Heart: Sounds normal. Abdomen: Soft bowel sounds normal. No guarding, rigidity, tenderness, distention. Extremities: No leg edema. Instructions: 1.Follow up at my office on 05/08/2018. 2.Follow up with Dr. Cary/Dr. Tanner in 2 weeks. 3.Use nebulizer treatment as needed for shortness of breath. 4.Prednisone 10 mg, patient to take 2 tablets by mouth daily for 4 days, then 1 tablet by mouth yolande y for 4 days, then half tablet by mouth daily for 4 days then stop and patient to take this prednison e with food. Discharge Medications: 1.Continue all prior home medication except; stop aspirin, stop Celebrex, stop verapamil. 2.Take new medication; albuterol and Atrovent nebulizer treatment every 4 hours as needed for shortn ess of breath. 3.Amlodipine 5 mg p.o. daily. 4.Augmentin 875 mg twice a day for 1 week. 5.Levaquin 500 mg daily for 1 week. 6.Xarelto 20 mg daily with supper. 7.Sotalol 120 mg twice a day. 8.Continue Spiriva inhaler 1 puff daily. 9.Continue Symbicort inhaler 2 puffs twice a day. The patient was advised to rinse mouth with water after use. 10.Use clotrimazole 1 tablet by mouth 4 times a day for 10 days. Laboratory Data: Labs and investigation done during this hospitalization includes initial white coun t was 15, when he was admitted. Highest white count was 22.7 on 04/23/2018. Last white count on 10/2017 was 8.3 with last hemoglobin 16, platelets 349. Procalcitonin, when he was admitted on 04/23 was 40.42. Last procalcitonin on 04/28/2018 was 0.62. Echocardiogram done during this hospita lization shows normal ejection fraction. Hospital Course: A 77-year-old male patient admitted to the hospital after he came into office with cough, congestion, shortness of breath. Please see dictated H and P for more information. The initi al chest x-ray showed changes of COPD, fibrotic lung changes, as well as large mid left lung pneumoni a and questionable 6 mm nodule in right lung. CAT scan of the chest was done, which revealed presenc e of pneumonia in the left lung. No evidence of any lung mass or nodule noted on the CAT scan. The patient was started on antibiotics for pneumonia. Blood culture grew initially some bacteria but it turned out to be skin contaminant. Sputum culture did not grow any bacteria. The patient had a gree chadwick colored mucus with streaks of blood in it in the beginning and over period of this hospitalizati on that has improved. He had lot of shortness of breath and initially trouble walking because of milan rtness of breath and weakness, but physical therapy was consulted and as his pneumonia got better, he started ambulating. Last weekend, he started having some decline with his ability to ambulate and i ncreasing shortness of breath and we did use a couple of days of IV Lasix as we were concerned about some fluid retention in line and then he had some metabolic alkalosis with bicarb going up to 43, so Lasix was discontinued and acetazolamide 250 mg p.o. daily was started and he responded well to that. Metabolic alkalosis got corrected. The patient was given oxygen nebulizer treatment. Initially, aldo hillman was given IV steroid, which was subsequently changed to oral steroid. He was getting DVT prophylax is using Lovenox until he went into atrial fibrillation with rapid ventricular rate. At that time, h is Lovenox dose was increased to therapeutic dose. Cardiology consultation was obtained from Dr. Torsten villegas who started him on sotalol. The patient did not convert to sinus rhythm, so last weekend Dr. Torsten villegas did electrical cardioversion and the patient came to normal sinus rhythm and remained in normal s inus rhythm after that. Few days ago, we discontinued his Lovenox and started him on Xarelto [address] Tanner and Dr. Cary followed up from Cardiology point of view and the patient is medica lly stable from cardiac point of view for discharge medically. He is doing much better. Amlodipine was started for hypertension problem. Today, when I saw him, he was noted to have a little bit hoars eness of voice and upon examination of his mouth, he was noted to have significant oral candidiasis p roblem and he was advised to start clotrimazole and he was instructed about how to use this medicatio n for 10 days as prescribed. Prescription was given to patient for nebulizer machine and supplies as he does not have any nebulize r machine at home. Final Diagnoses: 1.Pneumonia. 2.Acute exacerbation of chronic obstructive pulmonary disease. 3.Acute renal failure. 4.Volume depletion. 5.Paroxysmal atrial fibrillation. 6.Oral candidiasis. 7.Hypertension. 8.Hyperlipidemia. 9.Type 2 diabetes mellitus. 10.Gout. 11.Colon cancer. 12.Allergic rhinitis. ZO/MODL Voice ID: [id number] Report ID: [id number]
== END 2018-05-03 13:41 | disposition home or self-care (01) | DRG 194 ==
LOC: 4TH 17:38
PROVIDERS: ADMIT Internal Medicine; ATTEND Internal Medicine
PROC: 5A2204Z Restoration of Cardiac Rhythm, Single (ICD-10-PCS; principal; 2018-04-26)
DX: J18.9 Pneumonia, unspecified organism (principal); E87.3 Alkalosis; B37.0 Candidal stomatitis; J44.0 Chronic obstructive pulmonary disease with (acute) lower respiratory infection; J44.1 Chronic obstructive pulmonary disease with (acute) exacerbation; N17.9 Acute kidney failure, unspecified; E86.9 Volume depletion, unspecified; I48.0 Paroxysmal atrial fibrillation; I10 Essential (primary) hypertension; E78.5 Hyperlipidemia, unspecified; E11.9 Type 2 diabetes mellitus without complications; M10.9 Gout, unspecified; J30.9 Allergic rhinitis, unspecified; Z85.038 Personal history of other malignant neoplasm of large intestine; Z87.891 Personal history of nicotine dependence; N40.0 Benign prostatic hyperplasia without lower urinary tract symptoms
CPT/HCPCS: 36415; 71046; 71250; 80048; 80053; 81003; 81015; 83605; 83735; 84132; 84145; 85025; 87040; 87070; 87205; 93005; 93306; 97110; 97116; 97163; 97530; G0008; J1650; J1940; J2250; J2930; J7030; J7512; J7606; Q2035

== ENCOUNTER 2022-07-15 18:50 | Inpatient (IN) | payer OTHER, MEDICARE ==
--- OUTSIDE RECORDS SUMMARY | 2022-07-15 18:53 | XMS REPORT | Continuity of Care Document ---
:1940 Author Organization [facility] t Address [address] [place] [address] Care Team Providers Name Role Phone [phone] Primary Care Physician Unavailable SYSTEM, PROVIDER NOT IN Attending Clinician Unavailable LIZZY VICENTE Attending Clinician Unavailable JEANNIE TERRY Attending Clinician Unavailable Payers Payer Name Policy Type Policy Number Effective Date Expiration Date S jessica MEDICARE PART A [id number] 2004 AND B 00:00:00 [facility] [id number] 2015 ONLY 00:00:00 [facility] [id number] PPO 00:00:00 00:00:00 Problems This patient has no known problems. Allergies, Adverse Reactions, Alerts This patient has no known allergies or adverse reactions. Medications This patient has no known medications. Procedures This patient has no known procedures. Encounters Start End Encounter Admission Attending Care Care Encounter Source Date/Time Date/Time Type Type Clinicians Facility Department ID 2022-04-04 Outpatient SYSTEM, MDA MDA [id number] 11:54:06 PROVIDER Rowdy o n 2021-06-29 Outpatient MDA MDA [id number] 18:19:11 Anderso n 2021-06-29 Outpatient MDA MDA [id number] 18:19:11 Anderso n 2021-06-29 Outpatient MDA MDA [id number] 18:19:10 Anderso n 2021-06-29 Outpatient MDA MDA [id number] 18:19:09 Anderso n 2021-06-29 Outpatient MDA MDA [id number] 18:19:08 Anderso n 2021-06-29 Outpatient MDA MDA [id number] 17:13:03 Anderso n 2022-04-16 2022-04-16 Outpatient VERONA VICENTE, MDA MDA [id number] 10:57:59 10:57:59 LIZZY munguia 2022-04-14 2022-04-14 Outpatient VERONA TERRY, MDA MDA [id number] 10:44:30 23:59:00 JEANNIE munguia 2022-04-11 2022-04-11 Outpatient CINTHIA, MDA MDA [id number] 13:33:24 13:33:24 LIZZY munguia 2022-04-11 2022-04-11 Outpatient CINTHIA, MDA MDA [id number] 13:33:21 13:33:21 LIZZY munguia 2022-04-11 2022-04-11 Outpatient CINTHIA, MDA MDA [id number] 13:33:17 13:33:17 LIZZY munguia 2022-04-11 2022-04-11 Outpatient HARRISON, MDA MDA [id number] 10:36:32 10:53:22 JEANNIE munguia 2022-04-11 2022-04-11 Outpatient CINTHIA, MDA MDA [id number] 09:42:46 10:40:11 LIZZY munguia 2022-04-11 2022-04-11 Outpatient CINTHIA, MDA MDA [id number] 09:37:45 09:38:37 LIZZY munguia Results This patient has no known results.
[2022-07-15 19:51] LABS: Absolute Lymphocytes (CBC) 1.7 K/uL (0.7-4.9); Hematocrit 32.6 % (39.6-49.0); Lymphocytes % 9.2 % (15.3-44.8); MPV 7.4 fL (7.6-11.3); RBC Red Blood Cell Count 3.55 M/uL (4.33-5.43)
--- NOTE | 2022-07-15 19:58 | RAD REPORT ---
EXAM DESCRIPTION: [place] Single View07/15/2022 7:40 pm CLINICAL HISTORY: Fever COMPARISON: May 2022 FINDINGS: Progression in a right basilar lung consolidation Small consolidation mid right lateral lung. No significant change in additional bilateral pulmonary opacities. COPD Heart is normal size IMPRESSION: Progression in right lung consolidations likely pneumonia COPD
[2022-07-15 20:06] LABS: Albumin 2.7 g/dL (3.4-5.0); Bilirubin Total 0.9 mg/dL (0.2-1.0); Potassium 3.7 mmol/L (3.5-5.1); Protein, Total 8.1 g/dL (6.4-8.2)
[2022-07-15 20:28] LABS: Protime INR 1.18
--- NOTE | 2022-07-15 21:01 | ER ---
Nurse's Notes [facility] Name: Hernando Ca Jr Age: 81 yrs Sex: Male : 1940 Arrival Date: 07/15/2022 Time: 18:57 Bed 15 Private MD: Diagnosis: Pneumonia, unspecified organism;Sepsis, unspecified organism Presentation: 07/15 18:57 Chief complaint: EMS states: fever x3 days, with weakness that began today. client was kc6 82% on 6L via NC at home. client is currently 93\T\ on 7L via NC. Coronavirus screen: Vaccine status: Patient reports receiving the 2nd dose of the covid vaccine. Ebola Screen: No symptoms or risks identified at this time. Initial Sepsis Screen: Does the patient meet any 2 criteria? RR > 20 per min. Does the patient have a suspected source of infection? No. Patient's initial sepsis screen is negative. Risk Assessment: Do you want to hurt yourself or someone else? Patient reports no desire to harm self or others. Onset of symptoms was July 12, 2022. 18:57 Method Of Arrival: EMS: [facility] kc6 18:57 Acuity: KEVIN 3 kc6 Triage Assessment: 18:59 General: Appears in no apparent distress. comfortable, Behavior is calm, cooperative, kc6 appropriate for age. Pain: Denies pain. EENT: No signs and/or symptoms were reported regarding the EENT system. Neuro: Subramanian Agitation-Sedation Scale (RASS): 0 - Alert and Calm Level of Consciousness is awake, alert, obeys commands, Oriented to person, place, time, situation, Appropriate for age. Cardiovascular: Capillary refill < 3 seconds. Respiratory: Airway is patent Trachea midline Respiratory effort is even, labored, Respiratory pattern is symmetrical, tachypnea. GI: No signs and/or symptoms were reported involving the gastrointestinal system. : No signs and/or symptoms were reported regarding the genitourinary system. Derm: No signs and/or symptoms reported regarding the dermatologic system. Skin is intact, Skin is pink, warm \T\ dry. Musculoskeletal: Circulation, motion, and sensation intact. Capillary refill < 3 seconds, Range of motion: intact in all extremities, Reports weakness in generalized. Historical: - Allergies: 18:59 No Known Allergies; kc6 - PMHx: 18:59 Hypertensive disorder; asbestos; Chronic obstructive lung disease; colon cancer; kc6 - Immunization history:: Client reports receiving the 2nd dose of the Covid vaccine, Flu vaccine is up to date. - Social history:: Smoking status: Patient denies any tobacco usage or history of. Screenin:01 [facility] ED Fall Risk Assessment (Adult) History of falling in the last 3 months, kc6 including since admission No falls in past 3 months (0 pts) Confusion or Disorientation No (0 pts) Intoxicated or Sedated No (0 pts) Impaired Gait No (0 pts) Mobility Assist Device Used No (0 pt) Altered Elimination No (0 pt) Score/Fall Risk Level 0 - 2 = Low Risk Oriented to surroundings, Maintained a safe environment, Educated pt \T\ family on fall prevention, incl call for assistance when getting out of bed, Assessed \T\ reinforced patient's understanding of fall precautions, Hourly rounding (assess needs \T\ fall precautionary measures) done. Abuse screen: Denies threats or abuse. Denies injuries from another. Nutritional screening: No deficits noted. Tuberculosis screening: No symptoms or risk factors identified. Vital Signs: 18:57 BP 129 / 54; Pulse 78; Resp 25 S; Temp 98.5(O); Pulse Ox 93% on 7 lpm NC; Weight 62.14 kc6 kg (R); Height 5 ft. 11 in. (180.34 cm) (R); Pain 0/10; 20:00 BP 112 / 44; Pulse 73; Resp 22; Pulse Ox 93% on 7 lpm NC; Pain 0/10; ke1 18:57 Body Mass Index 19.11 (62.14 kg, 180.34 cm) [facility] ED Course: 18:57 Patient arrived in ED. kc6 18:59 Triage completed. kc6 18:59 Arm band placed on. kc6 19:00 Grisel Maddox FNP-C [facility]. kb 19:00 Ramiro Andrea MD is Attending Physician. kb 19:02 Patient has correct armband on for positive identification. Bed in low position. Call [facility] light in reach. Side rails up X2. Adult w/ patient. 19:36 Christian Polo, MEL is Primary Nurse. ke1 19:37 CBC with Diff Sent. ke1 19:37 CMP Sent. ke1 19:37 Lactate w/ 2H reflex if indic. Sent. ke1 19:37 Protime (+inr) Sent. ke1 19:38 Inserted saline lock: 20 gauge in left antecubital area, using aseptic technique. ke1 19:56 Blood Culture Adult (2) Sent. ke1 20:10 Inserted saline lock: 20 gauge in right wrist, using aseptic technique. ke1 21:00 Chong Hernandez MD is Hospitalizing Provider. kb 23:20 No provider procedures requiring assistance completed. Patient admitted, IV remains in ke1 place. Administered Medications: 20:18 Drug: Albuterol 2.5 mg Route: Inhalation; ke1 20:18 Drug: AtroVENT (ipratropium) Aerosol 0.5 mg Route: Inhalation; ke1 20:18 Drug: SOLU-Medrol (methylPrednisoLONE) 125 mg Route: IVP; Site: right wrist; ke1 20:18 Drug: LevaQUIN (levofloxacin) 500 mg Volume: 100 ml; Route: IVPB; Infused Over: 60 ke1 mins; Site: right wrist; 21:16 Drug: NS 0.9% 500 ml Route: IV; Rate: bolus; Site: right wrist; ke1 21:16 Drug: NS 0.9% 1000 ml Route: IV; Rate: 75 ml/hr; Site: right wrist; ke1 Medication: 23:20 VIS not applicable for this client. ke1 Outcome: 21:01 Decision to Hospitalize by Provider. kb 23:20 Admitted to Med/surg accompanied by tech. ke1 23:20 Condition: good 23:20 Instructed on the need for admit. 23:20 Patient left the ED. ke1 Signatures: Grisel Maddox, CUTTER FINISHER-C DEVENDRA-Christian Manley RN RN ke1 Aspen Yung RN RN kc6 Corrections: (The following items were deleted from the chart) 19:00 18:59 PMHx: None; cheryl kc6
--- NOTE | 2022-07-15 21:01 | EDPHYS ---
Physician Documentation [facility] Name: Hernando Ca Jr Age: 81 yrs Sex: Male : 1940 Arrival Date: 07/15/2022 Time: 18:57 Bed 15 Private MD: ED Physician Ramiro Andrea HPI: 07/15 21:09 This 81 yrs old Male presents to ER via EMS with complaints of General Weakness, Fever. kb 21:09 The patient or guardian reports cough, that is intermittent, described as mild, kb difficulty breathing, flu symptoms, low-grade fever. Onset: The symptoms/episode began/occurred today. Severity of symptoms: At their worst the symptoms were moderate, in the emergency department the symptoms are unchanged. Modifying factors: The symptoms are alleviated by nothing, the symptoms are aggravated by nothing. Associated signs and symptoms: Pertinent positives: fever, Pertinent negatives: chest pain, diarrhea, ear ache, nausea, rhinorrhea, sore throat, vomiting. The patient has not experienced similar symptoms in the past. The patient has not recently seen a physician. Historical: - Allergies: 18:59 No Known Allergies; kc6 - PMHx: 18:59 Hypertensive disorder; asbestos; Chronic obstructive lung disease; colon cancer; kc6 - Immunization history:: Client reports receiving the 2nd dose of the Covid vaccine, Flu vaccine is up to date. - Social history:: Smoking status: Patient denies any tobacco usage or history of. ROS: 21:08 Abdomen/GI: Negative for abdominal pain, nausea, vomiting, diarrhea, and constipation. kb 21:08 Constitutional: Positive for fever. 21:08 Respiratory: Positive for cough, shortness of breath. 21:08 All other systems are negative. Exam: 20:32 ECG was reviewed by the Attending Physician. kb 21:08 Constitutional: This is a well developed, well nourished patient who is awake, alert, kb and in no acute distress. Head/Face: Normocephalic, atraumatic. ENT: Moist Mucous membranes Cardiovascular: Regular rate and rhythm with a normal S1 and S2. No gallops, murmurs, or rubs. No pulse deficits. Abdomen/GI: Soft, non-tender. No distention Skin: Warm, dry with normal turgor. Normal color. MS/ Extremity: Pulses equal, no cyanosis. Neurovascular intact. Full, normal range of motion. Neuro: Awake and alert, GCS 15, oriented to person, place, time, and situation. Moves all extremities. Normal gait. 21:08 Respiratory: mild respiratory distress is noted, Respirations: labored breathing, that is mild, Breath sounds: decreased breath sounds, that are mild, that are moderate, are located in both bases. Vital Signs: 18:57 BP 129 / 54; Pulse 78; Resp 25 S; Temp 98.5(O); Pulse Ox 93% on 7 lpm NC; Weight 62.14 kc6 kg (R); Height 5 ft. 11 in. (180.34 cm) (R); Pain 0/10; 20:00 BP 112 / 44; Pulse 73; Resp 22; Pulse Ox 93% on 7 lpm NC; Pain 0/10; ke1 18:57 Body Mass Index 19.11 (62.14 kg, 180.34 cm) kc6 MDM: 19:00 Patient medically screened. kb 22:46 Differential Diagnosis: Bronchitis Influenza Upper Respiratory Infection Pneumonia. kb Data reviewed: vital signs, nurses notes. Consideration of Admission/Observation Patient was admitted/placed on observation. Management of patient was discussed with the following: Hospitalist: MARAL Burdick accepts patient for admission under Dr. Hernandez. Dr. Forte is patient's PCP but is out to the hospitalist at this time.. Historians other than the Patient: Spouse/Significant Other: . Care significantly affected by the following chronic conditions: Chronic Obstructive Pulmonary Disease, Asbestosis. Counseling: I had a detailed discussion with the patient and/or guardian regarding: the historical points, exam findings, and any diagnostic results supporting the discharge/admit diagnosis, lab results, radiology results, the need for further work-up and treatment in the hospital. 22:48 ED course: Patient is an 81-year-old male with a history of COPD and asbestosis who kb presents for increased cough, shortness of breath and fever that started today. EMS reports patient was 82% on home O2 at 6 L. Patient states normal O2 sat is 89 to 90% on 6 L. On exam, mild respiratory distress with diminished lung sounds bilaterally. X-ray reveals pneumonia. Serum labs ordered and reviewed. Patient will be admitted. 22:53 Historians other than the Patient: EMS: [facility]. kb 07/15 19:01 Order name: Blood Culture Adult (2) kb 07/15 19:01 Order name: CBC with Diff kb 07/15 19:01 Order name: CMP kb 07/15 19:01 Order name: Lactate w/ 2H reflex if indic. kb 07/15 19:01 Order name: Protime (+inr) kb 07/15 19:01 Order name: Ptt, Activated kb 07/15 19:01 Order name: COVID-19/FLU A+B kb 07/15 19:53 Order name: CBC with Automated Diff; Complete Time: 19:55 EDMS 07/15 20:07 Order name: Comprehensive Metabolic Panel; Complete Time: 20:08 EDMS 07/15 20:23 Order name: Glucose, Ancillary Testing; Complete Time: 20:30 EDMS 07/15 20:28 Order name: PTT, Activated Partial Thromb; Complete Time: 20:30 EDMS 07/15 20:28 Order name: Protime (+INR); Complete Time: 20:30 EDMS 07/15 20:44 Order name: Lactate w/ 2H reflex if indic.; Complete Time: 20:50 EDMS 07/15 21:30 Order name: ABG: OK for VBG la1 07/15 19:01 Order name: Chest Single View XRAY kb 07/15 19:01 Order name: EKG; Complete Time: 19:02 kb 07/15 19:01 Order name: Accucheck; Complete Time: 20:24 kb 07/15 19:01 Order name: Cardiac monitoring; Complete Time: 20:38 kb 07/15 19:01 Order name: EKG - Nurse/Tech; Complete Time: 20:38 kb 07/15 19:01 Order name: IV Saline Lock - Large Bore; Complete Time: 19:39 kb 07/15 19:01 Order name: Labs collected and sent; Complete Time: 21:22 kb 07/15 19:01 Order name: O2 Per Protocol; Complete Time: 19:39 kb 07/15 19:59 Order name: RAD; Complete Time: 20:01 EDMS 07/15 21:44 Order name: COVID-19/FLU A+B; Complete Time: 21:57 EDMS 07/15 19:01 Order name: O2 Sat Monitoring; Complete Time: 19:39 kb 07/15 19:01 Order name: Vital Signs; Complete Time: 22:25 kb EC:32 Rate is 70 beats/min. Rhythm is regular. QRS Topmost is Normal. MI interval is normal at kb 162 msec. QRS interval is normal at 84 msec. QT interval is normal at 498 msec. Administered Medications: 20:18 Drug: Albuterol 2.5 mg Route: Inhalation; ke1 20:18 Drug: AtroVENT (ipratropium) Aerosol 0.5 mg Route: Inhalation; ke1 20:18 Drug: SOLU-Medrol (methylPrednisoLONE) 125 mg Route: IVP; Site: right wrist; ke1 20:18 Drug: LevaQUIN (levofloxacin) 500 mg Volume: 100 ml; Route: IVPB; Infused Over: 60 ke1 mins; Site: right wrist; 21:16 Drug: NS 0.9% 500 ml Route: IV; Rate: bolus; Site: right wrist; ke1 21:16 Drug: NS 0.9% 1000 ml Route: IV; Rate: 75 ml/hr; Site: right wrist; ke1 Disposition: 07/16 05:20 Co-signature as Attending Physician, Ramiro Andrea MD I reviewed the patient's care rt provided by the Advanced Practice Provider and agree with the diagnosis and treatment plan. Disposition Summary: 07/15/22 21:01 Hospitalization Ordered Hospitalization Status: Inpatient Admission kb Provider: Chong Hernandez [facility] kb Condition: Stable kb Problem: new kb Symptoms: are unchanged kb Bed/Room Type: Standard Room Assignment: 214(07/15/22 21:47) Diagnosis - Pneumonia, unspecified organism kb - Sepsis, unspecified organism kb Forms: - Medication Reconciliation Form kb - SBAR form kb Signatures: Dispatcher [employer] Grisel Segundo, EMPLOYEE RELATIONS SPECIALIST-C EMPLOYEE RELATIONS SPECIALIST-CkGennaro Sinclair EMPLOYEE RELATIONS SPECIALIST-C EMPLOYEE RELATIONS SPECIALIST-Cla1 Annmarie Rush RN RN cg Ebrottie, Kouassi, RN RN ke1 Campbell, Kaitlyn, RN RN kc6 [place], Ryan, MD MD rt Corrections: (The following items were deleted from the chart) 07/15 19:00 18:59 PMHx: None; cheryl luna 21:47 21:01 kb
[2022-07-15] MEDS ORDERED: NA CHLORIDE 0.9% 1,000 ML ONE (21:10)
--- NOTE | 2022-07-15 21:32 | P.HP ---
Certification for Inpatient Patient admitted to: Inpatient With expected LOS: >2 Midnights Patient will require the following post-hospital care: None Practitioner: I am a practitioner with admitting privileges, knowledge of patient current condition, hospital course, and medical plan of care. Services: Services provided to patient in accordance with Admission requirements found in Title 42 Section 412.3 of the Code of Federal Regulations Patient History Date of Service: 07/15/22 Reason for admission: Sepsis, pneumonia History of Present Illness: 81-year-old male with history of COPD/asbestosis on chronic, O2 at 6 L, atrial fibrillation, hypertension, GERD, gout presents to the emergency department for shortness of breath, fevers. He reports increasing shortness of breath over the course of the last 1 month, significantly worse the past 1 week. He was running fevers at home Tmax 102 per family. He was evaluated in the emergency department his labs were significant for leukocytosis with a white blood cell count of 17.9 his lactate was 1.1. Chest x-ray showed right-sided pneumonia. SIRS criteria were present including leukocytosis, tachypnea. He also is requiring increased oxygen 7 to 8 L per nasal cannula over his baseline of 6 to maintain saturations. Will admit for further evaluation and management of sepsis, right-sided pneumonia. Allergies No Known Allergies Allergy (Unverified 10/04/11 16:04) Home Medications: Acetaminophen/Diphenhydramine [Tylenol Pm Ex-Strength Caplet] 2 each PO BEDTIME PRN 10/04/11 Albuterol [Proventil] 17 gm IH TIDP PRN 10/04/11 Loratadine [Claritin*] 10 mg PO DAILY 10/04/11 Multivitamin [Multivitamins] 1 each PO BEDTIME 10/04/11 Omeprazole 20 mg PO BEDTIME 10/04/11 Tiotropium [place] [Spiriva] 1 spray IH DAILY 10/04/11 Ferrous Fumarate/Vit Bcomp&C [Super B-Complex Caplet] 1 tab PO BEDTIME 04/23/18 Fluticasone [Flonase 50MCG Nasal [place]*] 1 spray IH BID 04/23/18 Albuterol Neb [Proventil 0.083% Neb Soln] 2.5 mg NEB [id number] PRN #25 amp 05/03/18 Amlodipine [Norvasc*] 5 mg PO DAILY #30 tab 05/03/18 Amox/Clavulanate [Augmentin 875-125 Tab] 1 each PO BID #14 tab 05/03/18 Clotrimazole [Mycelex Dewayne*] 10 mg MM QID #40 sydni 05/03/18 Ipratropium Neb [Atrovent*] 0.5 mg NEB [id number] PRN #25 amp 05/03/18 Levofloxacin [Levaquin] 500 mg PO DAILY #7 tablet 05/03/18 Rivaroxaban [Xarelto*] 20 mg PO DAILY AT SUPPER #30 tablet 05/03/18 Sotalol HCl [Sotalol] 120 mg PO BID #60 tablet 05/03/18 - Past Medical/Surgical History Diabetic: No -: Colon Cancer -: COPD -: Asbetosis -: PTSD -: A-fib -: Colon resection -: Thumb surgery Psychosocial/ Personal History: Lives at home with his - Family History Father -: Heart disease, Other (see notes) Notes: Irregular HR - Social History Smoking Status: Former smoker Alcohol use: Yes CD- Drugs: No Caffeine use: No Place of Residence: Home Review of Systems 10-point ROS is otherwise unremarkable General: Fever, Chills Respiratory: Cough, Shortness of Breath Physical Examination - Physical Exam General: Alert, In no apparent distress, Oriented x3 HEENT: Atraumatic, PERRLA, Mucous membr. moist/pink, EOMI, Sclerae nonicteric Neck: Supple, 2+ carotid pulse no bruit, No LAD, Without JVD or thyroid abnormality Respiratory: Diminished Cardiovascular: Regular rate/rhythm, Normal S1 S2 Gastrointestinal: Normal bowel sounds, No tenderness Musculoskeletal: No tenderness Integumentary: No rashes Neurological: Normal speech, Normal strength at 5/5 x4 extr, Normal tone, Normal affect - Studies Laboratory Data (last 24 hrs) 07/15/22 19:51: PT 13.0 H, INR 1.18, APTT 30.0 07/15/22 19:31: Sodium 135 L, Potassium 3.7, BUN 15, Creatinine 0.60 L, Glucose 97, Total Bilirubin 0.9, AST 17, ALT 15 L, Alkaline Phosphatase 77 07/15/22 19:31: WBC 17.90 H, Hgb 10.6 L, Hct 32.6 L, Plt Count 293 Assessment and Plan - Plan Assessment: Acute on chronic hypoxic respiratory failure Sepsis secondary to right-sided pneumonia Acute on chronic COPD/asbestosis Paroxysmal A-fib Hypertension Gout Plan: Acute on chronic hypoxic respiratory failure Secondary to right-sided pneumonia, COPD exacerbation. Continue antibiotics, p.o. steroids, as needed nebulizer treatments, Incentive spirometry. Supplemental oxygen as needed. Pulmonology to be consulted. Sepsis secondary to right-sided pneumonia SIRS criteria present including leukocytosis, tachypnea source of infection with right-sided pneumonia, continue antibiotics. Zosyn chosen given the patient takes sotalol and has mild prolonged QT on ECG. Acute on chronic COPD/asbestosis Continue as above Paroxysmal A-fib Currently in sinus rhythm, reportedly was taken off of anticoagulation by cardiology many years ago but takes daily aspirin in addition to sotalol. We will confirm sotalol dose, continue aspirin at this time. Hypertension Gout Continue home meds. DVT PPX: Lovenox Code status: Full Discharge Plan: Home Plan to discharge in: 72 Hours - Advance Directives Does patient have a Living Will: No Does patient have a Durable POA for Healthcare: No - Code Status/Comfort Care Code Status Assessed: Yes (Full code) Critical Care: No Time Spent Managing Pts Care (In Minutes): 70
[2022-07-15 21:44] LABS: SARS-COV-2 RT PCR NEGATIVE (NEGATIVE)
[2022-07-15] MEDS ORDERED: NA CHLORIDE 0.9% 1,000 ML IV SCH (23:35)
[2022-07-15] MEDS ORDERED: IPRATROPIUM BROM 0.5MG/2.5ML NEB PRN (23:35)
[2022-07-15] MEDS ORDERED: ACETAMINOPHEN 500 MG TAB PO PRN (23:35)
[2022-07-15] MEDS ORDERED: ONDANSETRON 4 MG/2 ML VIAL IV PRN (23:35)
[2022-07-16] MEDS: PIPER TAZO 3.375 GM in NA CHLORIDE 0.9% 100 ML IV SCH ×3 (00:20→16:14)
[2022-07-16 00:30] LABS: Arterial Blood Carboxyhemoglob 1.8 % (0-1.5); Blood Gas Oxyhemoglobin 94.3 % (94-97); Blood O2 Saturation 97.2 % (92-98.5)
[2022-07-16 04:17] VITALS: BMI 19.1
[2022-07-16 05:25] LABS: Specific Gravity 1.013 (1.005-1.030); Urine Bacteria None Seen /HPF (<20); Urine Bilirubin NEGATIVE (Negative); Urine Blood Negative (Negative); Urine Clarity Clear (Clear); Urine Color Light-Yellow (Yellow); Urine Glucose NEGATIVE (Negative); Urine Protein NEGATIVE (Negative); Urine RBC None Seen /HPF (None Seen); Urine Urobilinogen Normal (Normal); Urine pH 6.5 (5.0-7.0)
[2022-07-16 06:36] LABS: Absolute Lymphocytes (CBC) 0.9 K/uL (0.7-4.9); Hematocrit 31.4 % (39.6-49.0); Lymphocytes % 7.7 % (15.3-44.8); MCV 92.6 fL (80-100); MPV 7.5 fL (7.6-11.3); RBC Red Blood Cell Count 3.39 M/uL (4.33-5.43)
[2022-07-16 06:38] LABS: Potassium 3.7 mmol/L (3.5-5.1)
--- NOTE | 2022-07-16 08:27 | RAD REPORT ---
EXAM DESCRIPTION: CT - Thorax Wo Con - 07/16/2022 8:00 am CLINICAL HISTORY: Cough/pneumonia COMPARISON: 2018 TECHNIQUE: Computed axial tomography of the chest was obtained. Contrast was not requested. All CT scans are performed using dose optimization technique as appropriate and may include automated exposure control or mA/KV adjustment according to patient size. FINDINGS: The evaluation of mediastinum, mona and vessels is limited secondary to lack of IV contras t administration. 10 centimeter right middle lobe consolidation. Mild additional patchy right lung opacities. Small right upper lobe cavity Calcified granulomas within the lungs. Moderate to marked COPD Small mediastinal and hilar lymph nodes probably reactive in nature. Coronary arterial calcifications A pleural effusion is not present. No pericardial effusion IMPRESSION: Right lung consolidation with mild additional right lung opacities likely pneumonia. Thi s should be followed until it is clear to help exclude a post obstructive process/underlying mass Small right upper lobe cavity likely infectious
[2022-07-16] MEDS: predniSONE 20 MG TAB PO SCH (08:28)
[2022-07-16] MEDS: ASPIRIN EC 81 MG TAB PO SCH (08:29)
[2022-07-16] MEDS: NA CHLORIDE 0.9% 1,000 ML IV SCH (08:31)
[2022-07-16] MEDS ORDERED: ENOXAPARIN 40 MG/0.4 ML SQ SCH (09:00)
[2022-07-16] MEDS ORDERED: POTASSIUM CL SA 10 MEQ TAB PO ONE (09:00)
[2022-07-16] MEDS ORDERED: INFLUENZA VACCINE (for 6+ mo) 0.5 ML DOSE IMVAC ONE (12:00)
--- NOTE | 2022-07-16 12:36 | EKG ---
Test Date: 2022-07-15 Test Time: 20:23:32 [employer] Management Sales Consultant: MIKHAIL MEASUREMENT RESULTS: Intervals: Rate: 70 MO: 162 QRSD: 84 QT: 462 QTc: 498 [place]: P: 72 MO: 162 QRS: 72 T: 71 INTERPRETIVE STATEMENTS: Normal sinus rhythm Prolonged QT Abnormal ECG Compared to ECG 04/26/2018 11:24:58 Prolonged QT interval now present Electronically Signed On 07-16-22 12:35:07 [employer] SUPERVISOR by Eyal Olvera
[2022-07-16] MEDS: IPRATROPIUM BROM 0.5MG/2.5ML NEB SCH ×2 (14:00→19:50)
--- NOTE | 2022-07-16 16:15 | P.CNS ---
Date of Consult: 07/16/22 Reason for Consult: Pneumonia Chief Complaint: Sepsis, pneumonia History of Present Illness: Patient is 81 years of age with history of COPD asbestosis chronic O2 therapy scented to the emergency room complaining of high fevers rigors worsening shortness of breath is gotten worse over the past week does have a right lower lobe pneumonia still very short of breath Allergies No Known Allergies Allergy (Verified 07/15/22 23:52) Home Medications: Acetaminophen/Diphenhydramine [Tylenol Pm Ex-Strength Caplet] 2 each PO BEDTIME PRN 10/04/11 Albuterol [Proventil] 17 gm IH TIDP PRN 10/04/11 Loratadine [Claritin*] 10 mg PO DAILY 10/04/11 Multivitamin [Multivitamins] 1 each PO BEDTIME 10/04/11 Omeprazole 20 mg PO BEDTIME 10/04/11 Tiotropium [place] [Spiriva] 1 spray IH DAILY 10/04/11 Ferrous Fumarate/Vit Bcomp&C [Super B-Complex Caplet] 1 tab PO BEDTIME 04/23/18 Fluticasone [Flonase 50MCG Nasal [place]*] 1 spray IH BID 04/23/18 Albuterol Neb [Proventil 0.083% Neb Soln] 2.5 mg NEB [id number] PRN #25 amp 05/03/18 Amlodipine [Norvasc*] 5 mg PO DAILY #30 tab 05/03/18 Amox/Clavulanate [Augmentin 875-125 Tab] 1 each PO BID #14 tab 05/03/18 Clotrimazole [Mycelex Dewayne*] 10 mg MM QID #40 sydni 05/03/18 Ipratropium Neb [Atrovent*] 0.5 mg NEB [id number] PRN #25 amp 05/03/18 Levofloxacin [Levaquin] 500 mg PO DAILY #7 tablet 05/03/18 Rivaroxaban [Xarelto*] 20 mg PO DAILY AT SUPPER #30 tablet 05/03/18 Sotalol HCl [Sotalol] 120 mg PO BID #60 tablet 05/03/18 - Past Medical/Surgical History Diabetic: No -: Colon Cancer -: COPD -: Asbetosis -: PTSD -: A-fib -: Colon resection -: Thumb surgery Psychosocial/ Personal History: Lives at home with his - Family History Father Medical History: Heart disease, Other (see notes) Notes: Irregular HR - Social History Smoking Status: Former smoker Alcohol use: Yes CD- Drugs: No Caffeine use: No Place of Residence: Home Review of Systems General: Weakness Respiratory: Cough, Shortness of Breath Physical Examination Temp Pulse Resp BP Pulse Ox 98.7 F 80 18 127/52 L 99 07/16/22 12:00 07/16/22 12:00 07/16/22 12:00 07/16/22 12:00 07/16/22 12:00 General: Alert, In no apparent distress, Moderate distress Respiratory: Crackles/rales (Right side) Cardiovascular: No edema, Regular rate/rhythm, Normal S1 S2 Gastrointestinal: Normal bowel sounds, Soft and benign Laboratory Data (last 24 hrs) 07/15/22 19:51: PT 13.0 H, INR 1.18, APTT 30.0 07/15/22 19:31: Sodium 135 L, Potassium 3.7, BUN 15, Creatinine 0.60 L, Glucose 97, Total Bilirubin 0.9, AST 17, ALT 15 L, Alkaline Phosphatase 77 07/15/22 19:31: WBC 17.90 H, Hgb 10.6 L, Hct 32.6 L, Plt Count 293 - Problems (1) Right lower lobe pneumonia Current Visit: Yes Status: Acute Plan: Patient is 81 years of age with severe COPD admitted with right lower lobe pneumonia White count is declining continue with Zosyn urine cultures ordered blood gases shows mild hyper Marcela scheduled bronchodilators patient is very short of breath most likely severe terminal COPD continue with present therapy Qualifiers: Aspiration pneumonia type: unspecified (2) COPD (chronic obstructive pulmonary disease) Current Visit: Yes Status: Acute Plan: Patient has a history of COPD [facility]
[2022-07-16] MEDS: ARFORMOTEROL TARTRATE 15 MCG/2 ML VIAL.NEB NEB SCH (19:50)
[2022-07-17] MEDS: PIPER TAZO 3.375 GM in NA CHLORIDE 0.9% 100 ML IV SCH ×2 (00:23→08:01)
[2022-07-17] MEDS: IPRATROPIUM BROM 0.5MG/2.5ML NEB SCH ×4 (01:25→19:20)
[2022-07-17 03:48] LABS: Absolute Lymphocytes (CBC) 1.7 K/uL (0.7-4.9); Hematocrit 28.7 % (39.6-49.0); Lymphocytes % 11.8 % (15.3-44.8); MCV 92.9 fL (80-100); MPV 7.4 fL (7.6-11.3); RBC Red Blood Cell Count 3.08 M/uL (4.33-5.43)
[2022-07-17 03:54] LABS: Potassium 3.5 mmol/L (3.5-5.1)
[2022-07-17] MEDS ORDERED: POTASSIUM CL SA 10 MEQ TAB PO ONE (04:30)
--- NOTE | 2022-07-17 08:25 | PN ---
Date of Progress Note: 07/16/2022 Subjective: Patient was seen this morning for followup. He came into emergency room yesterday with shortness of breath, feeling weak, poor appetite. After he was evaluated in the ER, he was admitted to the hospital by hospitalist and I saw him this morning. He does not cough up any mucus. No hemop tysis. Objective: Vital Signs: Reviewed. HEENT: Unremarkable. Lungs: Some rales noted with diminished air entry in the lower part of the right lung. Not using ac cessory muscles of respiration at rest. Heart: Sounds normal. Abdomen: Soft. Bowel sounds normal. No guarding, rigidity, tenderness, distention. Extremities: No leg edema. Laboratory Data: White count 11.9, hemoglobin 10, platelets 294. Sodium 136, potassium 3.7, chlorid e 100, bicarb 31, BUN 19, creatinine 0.70, glucose 262. Impression: 1.Pneumonia. 2.Acute exacerbation of chronic obstructive pulmonary disease. 3.Chronic respiratory failure with hypoxia, with acute exacerbation. 4.Anemia, unspecified. Plan: Patient is on oxygen at home continuously at 2 L/minute and currently is on oxygen 7 L/minute. His hypoxia problem has gotten worse with this acute illness and we will continue current oxygen re placement therapy. Continue current empiric antibiotics, follow up on culture results. His chest x- ray finding reviewed with him. I have ordered CT scan of the chest today. We will follow up on that . I will follow up with Dr. De La Cruz on outpatient basis for his abnormal chest x-ray. I have reque sted him to follow up with [facility] and he has not done so, so I did remind him again in presence of his today that it is very important for him to follow up at [facility] and he already had 1 visit regarding this abnormal chest x-ray at [facility] and he did not feel comfortable [facility] who [facility], so I did ask him that he should request a different physician to ev aluate him for this abnormality on the chest x-ray, which is nothing new as per this admission as it was detected before and it is the reason why he was asked to follow up at [facility]. I will see hi m tomorrow for followup. ZO/MODL Voice ID: [id number] Report ID: [id number]
[2022-07-17] MEDS: predniSONE 20 MG TAB PO SCH (08:38)
[2022-07-17] MEDS: ASPIRIN EC 81 MG TAB PO SCH (08:38)
[2022-07-17] MEDS: ARFORMOTEROL TARTRATE 15 MCG/2 ML VIAL.NEB NEB SCH ×2 (09:21→19:20)
[2022-07-17] MEDS: NA CHLORIDE 0.9% 1,000 ML IV SCH (11:08)
--- NOTE | 2022-07-17 11:54 | P.PN ---
Subjective Date of Service: 07/17/22 Chief Complaint: Sepsis, pneumonia Subjective: Improving (Patient's condition is improving slightly still very short of breath) Review of Systems General: Weakness Respiratory: Shortness of Breath Physical Examination - Vital Signs Temperature: 97.9 F Blood Pressure: 154/72 Pulse: 89 Respirations: 32 Pulse Ox (%): 90 - Physical Exam General: Alert, Oriented x3 Respiratory: Crackles/rales (Crackles on the right side) Cardiovascular: No edema, Regular rate/rhythm, Normal S1 S2 Assessment And Plan - Current Problems (Diagnosis) (1) Right lower lobe pneumonia Current Visit: Yes Status: Acute Plan: Patient admitted with right lower lobe pneumonia CT scan reviewed high risk for Pseudomonas MRSA infection changed to cefepime and vancomycin the potential interaction of Zosyn and vancomycin to precipitate renal failure steroids are so far negative pending White count is still elevated has increased a little bit reduced dose of prednisone Qualifiers: Aspiration pneumonia type: unspecified (2) COPD (chronic obstructive pulmonary disease) Current Visit: Yes Status: Acute Plan: Patient has a history of COPD [facility]
[2022-07-17] MEDS: levoFLOXacin 250 MG TAB PO SCH (12:54)
[2022-07-17] MEDS: VANCOMYCIN 1 GM in NA CHLORIDE 0.9% 250 ML IVPB SCH (14:00)
[2022-07-17] MEDS ORDERED: RIVAROXABAN 20 MG TABLET PO SCH (17:00)
[2022-07-17] MEDS: CEFEPIME 1 GM in NA CHLORIDE 0.9% 100 ML IV SCH (21:00)
--- NOTE | 2022-07-17 21:59 | PN ---
Date of Progress Note: 07/17/2022 Subjective: The patient was seen this morning for followup. No new complaints or problems reported by him. He was on nasal cannula oxygen at 6 L/minute this morning. He has shortness of breath with activity. No other new complaints reported. Objective: Vital Signs: Reviewed. HEENT: Unremarkable. Lungs: Bilateral good and equal entry, presence of rales noted in right lower lung quesada. Heart: Sounds normal. Abdomen: Soft. Bowel sounds normal. No guarding, rigidity, tenderness, distention. Extremities: No leg edema. Laboratory Data: White count 14.8, hemoglobin 9.5, platelet count 326. Sodium 139, potassium 3.5, chloride 99, bicarb 36, creatinine 0.49, glucose 106. Impression: 1. Pneumonia. 2. Acute exacerbation of chronic obstructive pulmonary disease. 3. Anemia, unspecified. 4. Chronic respiratory failure with hypoxia, with acute exacerbation. Plan: The patient's CAT scan of the chest done yesterday, results reviewed with him. We will continue current antibiotics. The patient's WBC count has gone up. Very likely, it could be due to steroid use. We will continue current oxygen nebulizer treatment. Physical therapy to help ambulate the patient and continue current DVT prophylaxis. I will see him tomorrow for followup. ZO/MODL Voice ID: [id number] Report ID: [id number]
[2022-07-18] MEDS: VANCOMYCIN 1 GM in NA CHLORIDE 0.9% 250 ML IVPB SCH ×2 (01:00→12:24)
[2022-07-18] MEDS: IPRATROPIUM BROM 0.5MG/2.5ML NEB SCH ×4 (01:00→20:05)
[2022-07-18 04:16] LABS: Absolute Lymphocytes (CBC) 1.5 K/uL (0.7-4.9); Hematocrit 29.2 % (39.6-49.0); Lymphocytes % 17.3 % (15.3-44.8); MCV 92.5 fL (80-100); RBC Red Blood Cell Count 3.16 M/uL (4.33-5.43)
[2022-07-18 05:08] LABS: Potassium 4.1 mmol/L (3.5-5.1)
[2022-07-18] MEDS: ARFORMOTEROL TARTRATE 15 MCG/2 ML VIAL.NEB NEB SCH ×2 (08:52→20:05)
[2022-07-18] MEDS: CEFEPIME 1 GM in NA CHLORIDE 0.9% 100 ML IV SCH ×2 (08:52→21:00)
[2022-07-18] MEDS: predniSONE 10 MG TAB PO SCH (08:55)
[2022-07-18] MEDS: ASPIRIN EC 81 MG TAB PO SCH (08:55)
[2022-07-18] MEDS: levoFLOXacin 250 MG TAB PO SCH (08:55)
[2022-07-18] MEDS: ENSURE HIGH PROTEIN 237 ML CAN PO SCH ×3 (08:56→21:00)
[2022-07-18] MEDS: NA CHLORIDE 0.9% 1,000 ML IV SCH ×2 (11:27→20:00)
--- NOTE | 2022-07-18 23:50 | PN ---
Date of Progress Note: 07/18/2022 Subjective: The patient was seen this morning for followup. He was lying in bed, on nasal cannula o xygen but does not feel any better compared to yesterday. No new complaints or problems reported. Frankie hillman feels weak, tired, gets short of breath with any activity, and all the symptoms are unchanged. He has a fairly good appetite as he says. Objective: Vital Signs: Reviewed. HEENT: Unremarkable. Lungs: Bilateral good equal air entry. Presence of diminished air entry with rales in right lower l constantino field unchanged. Not using accessory muscles of respiration at rest. Heart: Sounds normal. Abdomen: Soft. Bowel sounds normal. No guarding, rigidity, tenderness, or distention. Extremities: No leg edema. Laboratory Data: White count 8.8, hemoglobin 9.6, and platelets 327. Sodium 139, potassium 4.1, chl oride 100, bicarb 40, BUN 19, creatinine 0.56, and glucose 98. Impression: 1.Pneumonia. 2.Acute exacerbation of chronic obstructive pulmonary disease. 3.Rule out lung cancer. 4.Chronic respiratory failure, with hypoxia, with acute exacerbation. 5.Anemia. Plan: We will go ahead and continue current medications. The patient was started on Xarelto yesterd ay by Dr. De La Cruz. He does not take this medication at home and after he took 1 dose yesterday in t he evening time, he had nosebleed. The patient does not know why this medication was started and I h ave discontinued it this morning. We will continue current antibiotic. He is on Levaquin, cefepime, and vancomycin per Dr. De La Cruz. We will also continue oxygen nebulizer treatment and he was advise d to use Ensure for nutritional supplement and I will see him tomorrow for followup. We will repeat chest x-ray tomorrow. I did talk to him and his regarding followup at [facility] sometime in July and will schedule appointment for second week of July for [facility] followup. ZO/MODL Voice ID: [id number] Report ID: [id number]
[2022-07-19] MEDS: VANCOMYCIN 1 GM in NA CHLORIDE 0.9% 250 ML IVPB SCH (01:26)
[2022-07-19] MEDS: IPRATROPIUM BROM 0.5MG/2.5ML NEB SCH ×4 (01:50→20:25)
[2022-07-19 03:15] LABS: Absolute Lymphocytes (CBC) 1.6 K/uL (0.7-4.9); Hematocrit 28.6 % (39.6-49.0); Lymphocytes % 17.3 % (15.3-44.8); MCV 91.9 fL (80-100); MPV 7.3 fL (7.6-11.3); RBC Red Blood Cell Count 3.11 M/uL (4.33-5.43)
[2022-07-19 03:25] LABS: Potassium 3.4 mmol/L (3.5-5.1)
--- NOTE | 2022-07-19 07:49 | RAD REPORT ---
EXAM DESCRIPTION: [facility] Single View07/19/2022 5:30 am CLINICAL HISTORY: Chest pain COMPARISON: July 16, 2022 FINDINGS: Overall no significant change in the right lung opacities COPD Heart is normal size IMPRESSION: No significant change in the right pneumonia
[2022-07-19] MEDS: ASPIRIN EC 81 MG TAB PO SCH (08:04)
[2022-07-19] MEDS: predniSONE 10 MG TAB PO SCH (08:04)
[2022-07-19] MEDS: ENOXAPARIN 40 MG/0.4 ML SQ SCH (08:05)
[2022-07-19] MEDS: ENSURE HIGH PROTEIN 237 ML CAN PO SCH ×3 (08:06→20:44)
[2022-07-19] MEDS: CEFEPIME 1 GM in NA CHLORIDE 0.9% 100 ML IV SCH ×2 (08:08→20:44)
[2022-07-19] MEDS ORDERED: POTASSIUM CL SA 10 MEQ TAB PO ONE (09:00)
[2022-07-19] MEDS ORDERED: levoFLOXacin 750 MG TAB PO SCH (09:00)
[2022-07-19] MEDS: ARFORMOTEROL TARTRATE 15 MCG/2 ML VIAL.NEB NEB SCH ×2 (09:05→20:25)
[2022-07-19] MEDS ORDERED: VANCOMYCIN 1.25 GM in NA CHLORIDE 0.9% 250 ML IVPB SCH (13:00)
[2022-07-19] MEDS: NA CHLORIDE 0.9% 1,000 ML IV SCH (16:00)
[2022-07-20] MEDS: VANCOMYCIN 1.25 GM in NA CHLORIDE 0.9% 250 ML IVPB SCH ×2 (00:56→12:12)
--- NOTE | 2022-07-20 01:23 | PN ---
Date of Progress Note: 07/19/2022 Subjective: Patient was seen this morning for followup. No new complaints or problems reported. Ov erall, he looks better. Still continues to require 6 to 7 L/minute nasal cannula oxygen. Objective: Vital Signs: Reviewed. HEENT: Unremarkable. Lungs: Clear to auscultation on the left side. Right side diminished air entry with some rales in t he lower lung region, unchanged from before. Heart: Sounds normal. Abdomen: Soft. Bowel sounds normal. No guarding, rigidity, tenderness, or distention. Extremities: No leg edema. Laboratory Data: White count 9, hemoglobin 9.2, platelets 349. Sodium 135, potassium 3.4, chloride 95, bicarb 40, BUN 17, creatinine 0.41, glucose 103. Impression: 1.Pneumonia. 2.Acute exacerbation of chronic obstructive pulmonary disease. 3.Hypokalemia. 4.Anemia. 5.Epistaxis, resolved. 6.Chronic respiratory failure, with hypoxia, with acute exacerbation. Plan: We will go ahead and continue current antibiotic. Continue to follow with Dr. De La Cruz. Cont inue Lovenox for DVT prophylaxis per order. We will continue oxygen replacement therapy, steroid, wh ich is oral prednisone, and nebulizer treatment. I will see him tomorrow for followup. Replace potassium p er protocol. ZO/MODL Voice ID: [id number] Report ID: [id number]
[2022-07-20] MEDS: IPRATROPIUM BROM 0.5MG/2.5ML NEB SCH ×4 (02:00→20:54)
[2022-07-20 04:20] LABS: Potassium 3.9 mmol/L (3.5-5.1)
[2022-07-20] MEDS: NA CHLORIDE 0.9% 1,000 ML IV SCH (06:34)
[2022-07-20] MEDS: PANTOPRAZOLE 40MG TABLET PO SCH (06:34)
[2022-07-20] MEDS: ARFORMOTEROL TARTRATE 15 MCG/2 ML VIAL.NEB NEB SCH ×2 (08:20→20:54)
[2022-07-20] MEDS: MONTELUKAST 10 MG TAB PO SCH (08:51)
[2022-07-20] MEDS: allopurinoL 100 MG TAB PO SCH (08:51)
[2022-07-20] MEDS: SOTALOL HCL 80 MG TAB PO SCH ×2 (08:52→21:55)
[2022-07-20] MEDS: SERTRALINE HCL 50 MG TAB PO SCH (08:52)
[2022-07-20] MEDS: acetaZOLAMIDE 250 MG TAB PO SCH ×2 (08:53→21:56)
[2022-07-20] MEDS: ASPIRIN EC 81 MG TAB PO SCH (08:54)
[2022-07-20] MEDS: ENOXAPARIN 40 MG/0.4 ML SQ SCH (08:55)
[2022-07-20] MEDS: predniSONE 10 MG TAB PO SCH (08:55)
[2022-07-20] MEDS ORDERED: SOTALOL HCL 80 MG TAB PO SCH (09:00)
[2022-07-20] MEDS: CEFEPIME 1 GM in NA CHLORIDE 0.9% 100 ML IV SCH ×2 (09:00→21:54)
[2022-07-20] MEDS ORDERED: POTASSIUM CL SA 10 MEQ TAB PO ONE (09:00)
[2022-07-20] MEDS: ENSURE HIGH PROTEIN 237 ML CAN PO SCH ×3 (09:02→21:55)
--- NOTE | 2022-07-20 09:41 | PN ---
Date of Progress Note: 07/20/2022 Subjective: The patient was seen this morning for followup. He was sitting in bed, not in distress. His was present with him at bedside. He is on oxygen 6 to 7 L/minute nasal cannula. Yesterda y, he did ambulate well outside the room in the hallway with help of physical therapy. Denies any ne w complaints overnight. Objective: Vital Signs: Reviewed. HEENT: Unremarkable. Lungs: Clear to auscultation on the left side. Right side diminished air entry with rales noted in the lower lung field unchanged. Heart: Sounds normal. Abdomen: Soft. Bowel sounds normal. No guarding, rigidity, tenderness, distention. Extremities: No leg edema. Laboratory Data: Sodium 135, potassium 3.9, chloride 94, bicarb 41, BUN 16, creatinine 0.47, glucose 112. Impression: 1.Pneumonia. 2.Chronic respiratory failure with hypoxia, with acute exacerbation. 3.Acute exacerbation of chronic obstructive pulmonary disease. 4.Paroxysmal atrial fibrillation. Plan: We will go ahead and continue current medication, continue current antibiotics. He is on cefe pime and vancomycin. Blood culture is negative so far. Sputum culture is growing Christine and I will communicate with Dr. De La Cruz regarding his recommendation on this. We will continue oxygen replace ment therapy, continue steroid. He is on oral prednisone 10 mg daily now. At home, he takes sotalol 120 mg 2 times a day. This is being managed by his mechanical oxidizer, Dr. Maher and I will continue th at along with his other home medications and I have reviewed his home medication list that he has and it is important to keep in mind that hospital medication list in the computer is not accurate. The patient does not take any anticoagulation therapy at home. He took 1 dose of Xarelto about 3 days ag o and had epistaxis and Xarelto was discontinued. He continues to receive Lovenox for DVT prophylaxi s without any problem. The patient is on continuous home oxygen therapy at home. He uses oxygen any where between 4 to 6 L/minute nasal cannula oxygen and sometime up to 7 L/minute, but mostly it is 4 to 6 L/minute, so currently he is on 6 L/minute nasal cannula oxygen, not significantly different lorrie n his baseline at home. Yesterday's chest x-ray was unchanged. Possible discharge over the weekend depending on his condition. ZO/MODL Voice ID: [id number] Report ID: [id number]
--- NOTE | 2022-07-20 12:06 | P.PN ---
Subjective Date of Service: 07/20/22 Chief Complaint: Sepsis, pneumonia Subjective: Improving (Patient is improving doing better) Review of Systems General: Weakness Respiratory: Shortness of Breath Physical Examination - Vital Signs Temperature: 97.2 F Blood Pressure: 158/70 Pulse: 96 Respirations: 18 Pulse Ox (%): 94 - Physical Exam General: Alert, In no apparent distress, Oriented x3 Respiratory: Clear to auscultation bilaterally Cardiovascular: No edema, Regular rate/rhythm, Normal S1 S2 Assessment And Plan - Current Problems (Diagnosis) (1) Right lower lobe pneumonia Current Visit: Yes Status: Acute Plan: Patient admitted with right lower lobe pneumonia he is doing better carbonate is elevated culture shows Christine most likely contaminant patient is on Diamox saturation satisfactory stable for discharge on levofloxacin and doxycycline chest x-ray no significant change probably take around 4 to 6 weeks for it to resolve have a right lower lobe infiltrate confirmed on a CT scan Qualifiers: Aspiration pneumonia type: unspecified (2) COPD (chronic obstructive pulmonary disease) Current Visit: Yes Status: Acute Plan: Patient has a history of COPD [facility]
[2022-07-20] MEDS: ALBUTEROL 2.5 MG/3 ML NEB SOL NEB PRN (20:54)
[2022-07-20] MEDS: ATORVASTATIN 20 MG TAB PO SCH (21:55)
[2022-07-20] MEDS: ROPINIROLE HCL 0.25 MG TAB PO SCH (21:56)
[2022-07-21] MEDS: VANCOMYCIN 1.5 GM in NA CHLORIDE 0.9% 500 ML IVPB SCH ×2 (01:34→14:24)
[2022-07-21] MEDS: IPRATROPIUM BROM 0.5MG/2.5ML NEB SCH ×4 (02:20→20:55)
[2022-07-21] MEDS: PANTOPRAZOLE 40MG TABLET PO SCH (05:33)
[2022-07-21] MEDS: ARFORMOTEROL TARTRATE 15 MCG/2 ML VIAL.NEB NEB SCH ×2 (08:00→20:55)
[2022-07-21 08:22] LABS: Absolute Lymphocytes (CBC) 1.9 K/uL (0.7-4.9); Hematocrit 27.7 % (39.6-49.0); Lymphocytes % 20.7 % (15.3-44.8); MCV 92.5 fL (80-100); MPV 7.3 fL (7.6-11.3); RBC Red Blood Cell Count 2.99 M/uL (4.33-5.43)
[2022-07-21 08:38] LABS: Potassium 3.7 mmol/L (3.5-5.1)
--- NOTE | 2022-07-21 08:52 | RAD REPORT ---
EXAM DESCRIPTION: RAD - Chest Pa And Lat (2 Views) - 07/21/2022 8:28 am CLINICAL HISTORY: pneumonia, COPD COMPARISON: Chest Single View dated 07/19/2022; Chest Single View dated 07/15/2022; Chest Pa And Lat ( 2 Views) dated 06/20/2022; Chest Pa And Lat (2 Views) dated 03/28/2022; Thorax Wo Con dated 07/16/2022 FINDINGS: Lines: None. Lungs: Aeration of the right upper lobe is marginally improved. The right lung base remains consolida kathy. Emphysema. Left lung remains clear . Pleural: No significant pleural effusions or pneumothorax. Cardiac: The heart size is within normal limits. Mediastinum: Within normal limits. Bones: No acute fractures. Other: None IMPRESSION: Marginal improvement in aeration of the right upper lobe compared with 07/19/2022. Simil ar consolidative airspace disease at the right lung base. Findings remain concerning for pneumonia.
[2022-07-21] MEDS ORDERED: levoFLOXacin 500 MG TAB PO SCH (09:00)
[2022-07-21] MEDS: CEFEPIME 1 GM in NA CHLORIDE 0.9% 100 ML IV SCH ×2 (09:51→20:41)
[2022-07-21] MEDS: acetaZOLAMIDE 250 MG TAB PO SCH ×2 (09:54→20:42)
[2022-07-21] MEDS: ASPIRIN EC 81 MG TAB PO SCH (09:54)
[2022-07-21] MEDS: MONTELUKAST 10 MG TAB PO SCH (09:55)
[2022-07-21] MEDS: SOTALOL HCL 80 MG TAB PO SCH ×2 (09:55→20:42)
[2022-07-21] MEDS: predniSONE 10 MG TAB PO SCH (09:55)
[2022-07-21] MEDS: allopurinoL 100 MG TAB PO SCH (09:56)
[2022-07-21] MEDS: SERTRALINE HCL 50 MG TAB PO SCH (09:58)
[2022-07-21] MEDS: ENSURE HIGH PROTEIN 237 ML CAN PO SCH ×3 (09:59→20:54)
[2022-07-21] MEDS: ENOXAPARIN 40 MG/0.4 ML SQ SCH (09:59)
--- NOTE | 2022-07-21 11:21 | P.PN ---
Subjective Date of Service: 07/21/22 Chief Complaint: Pneumonia COPD Subjective: Improving (Improving still feeling weak he is on 7 L of nasal cannula oxygen) Review of Systems General: Weakness Respiratory: Shortness of Breath Physical Examination - Vital Signs Temperature: 98.0 F Blood Pressure: 96/42 Pulse: 67 Respirations: 16 Pulse Ox (%): 100 - Physical Exam General: Alert, Oriented x3 Respiratory: Clear to auscultation bilaterally, Diminished Cardiovascular: No edema, Regular rate/rhythm - Studies Microbiology Data (last 24 hrs): 07/15/22 19:51 Blood - Blood Aerobic Blood Culture - Final No growth in 5 days. 07/15/22 19:51 Blood - Blood Anaerobic Blood Culture - Final No growth in 5 days. 07/15/22 19:31 Blood - Blood Aerobic Blood Culture - Final No growth in 5 days. 07/15/22 19:31 Blood - Blood Anaerobic Blood Culture - Final No growth in 5 days. Assessment And Plan - Current Problems (Diagnosis) (1) Right lower lobe pneumonia Current Visit: Yes Status: Acute Plan: patient admitted with right lower lobe pneumonia doing much better white count is now normal cultures are negative Christine albicans most likely a contaminant order overgrowth advised the patient to titrate his O2 down to a sat of 90% and increased by 1 L on exertion and 1 L during sleep bicarbonate level is declining we will discharge on Augmentin and doxycycline Qualifiers: Aspiration pneumonia type: unspecified (2) COPD (chronic obstructive pulmonary disease) Current Visit: Yes Status: Acute Plan: Patient has a history of COPD [facility]
--- NOTE | 2022-07-21 13:05 | PN ---
Date of Progress Note: 07/21/2022 Subjective: The patient was seen this morning for followup. No new complaints or problems reported by patient. He was lying in bed. was present with him at bedside. He is on nasal cannula oxygen at 7 L/minute, but it is a high- flow oxygen. Denies any epistaxis. Had a bowel movement yesterday. Objective: Vital Signs: Reviewed. HEENT: Unremarkable. Lungs: Presence of some crackles in the right lung with diminished air entry in the right lung base. Not using accessory muscles of respiration. Heart: Sounds normal. Abdomen: Soft. Bowel sounds normal. No guarding, rigidity, tenderness, distention. Extremities: No leg edema. Laboratory Data: Sodium 136, potassium 3.7, chloride 99, bicarb 35, BUN 15, creatinine 0.48, glucose 102. White count 9.2. Chest x-ray shows marginal improvement in right lung infiltrate. Impression: 1. Acute exacerbation of chronic obstructive pulmonary disease. 2. Chronic respiratory failure with hypoxia, with acute exacerbation. 3. Anemia, chronic, unspecified. 4. Paroxysmal atrial fibrillation. Plan: We will go ahead and continue current antibiotic which is cefepime and vancomycin. Dr. De La Cruz and I did discuss details about possible discharge, which will happen in next 1 or 2 days and on outpatient basis. Initially, he is looking about sending patient home with Levaquin and doxycycline, but in view of patient taking sotalol and possible drug interaction with sotalol and Levaquin, we will not use Levaquin. Instead of that, we will plan to discharge him to go home with Augmentin and doxycycline. We will look into the patient's high-flow oxygen, and I will see him tomorrow for followup. We will continue current Diamox 125 mg 2 times a day. ZO/MODL Voice ID: [id number] Report ID: [id number]
[2022-07-21] MEDS: ROPINIROLE HCL 0.25 MG TAB PO SCH (20:42)
[2022-07-21] MEDS: ATORVASTATIN 20 MG TAB PO SCH (20:43)
[2022-07-22] MEDS: VANCOMYCIN 1.5 GM in NA CHLORIDE 0.9% 500 ML IVPB SCH ×2 (00:51→12:46)
[2022-07-22] MEDS: IPRATROPIUM BROM 0.5MG/2.5ML NEB SCH ×4 (02:35→20:35)
[2022-07-22] MEDS: PANTOPRAZOLE 40MG TABLET PO SCH (06:19)
[2022-07-22] MEDS: ARFORMOTEROL TARTRATE 15 MCG/2 ML VIAL.NEB NEB SCH ×2 (08:30→20:35)
[2022-07-22] MEDS ORDERED: BENZONATATE 100 MG CAP PO PRN (08:55)
[2022-07-22] MEDS: SERTRALINE HCL 50 MG TAB PO SCH (09:03)
[2022-07-22] MEDS: allopurinoL 100 MG TAB PO SCH (09:03)
[2022-07-22] MEDS: acetaZOLAMIDE 250 MG TAB PO SCH ×2 (09:03→21:14)
[2022-07-22] MEDS: MONTELUKAST 10 MG TAB PO SCH (09:03)
[2022-07-22] MEDS: ASPIRIN EC 81 MG TAB PO SCH (09:04)
[2022-07-22] MEDS: SOTALOL HCL 80 MG TAB PO SCH ×2 (09:04→21:16)
[2022-07-22] MEDS: ENOXAPARIN 40 MG/0.4 ML SQ SCH (09:05)
[2022-07-22] MEDS: CEFEPIME 1 GM in NA CHLORIDE 0.9% 100 ML IV SCH ×2 (09:05→21:16)
[2022-07-22] MEDS: ENSURE HIGH PROTEIN 237 ML CAN PO SCH ×3 (09:05→21:00)
[2022-07-22] MEDS: predniSONE 10 MG TAB PO SCH (09:06)
--- NOTE | 2022-07-22 10:04 | PN ---
Date of Progress Note: 07/22/2022 Subjective: The patient was seen this morning for followup. No new complaints or problems reported by the patient. He was lying in bed, not in any distress, on nasal cannula 5 L/minute oxygen and pam ntaining adequate oxygenation. Objective: Vital Signs: Reviewed. HEENT: Unremarkable. Lungs: Clear to auscultation on the left side. Right side, some diminished air entry with rales in the right lung base. Not using accessory muscles of respiration. Heart: Sounds normal. Abdomen: Soft. Bowel sounds normal. No guarding, rigidity, tenderness, distention. Extremities: No leg edema. Laboratory Data: There were no new labs this morning. Impression: 1.Pneumonia. 2.Acute exacerbation of chronic obstructive pulmonary disease. 3.Chronic respiratory failure with hypoxia, with acute exacerbation. 4.Anemia, unspecified. 5.Paroxysmal atrial fibrillation. Plan: We will go ahead and continue sotalol and continue Lovenox for DVT prophylaxis. The patient i s requesting some cough medication and benzonatate 100 mg 4 times a day as needed for cough was order ed. We will continue current antibiotic which is cefepime and vancomycin. Continue current oral pre dnisone 10 mg daily and we will continue oxygen replacement therapy, nebulizer treatment, and we will repeat chest x-ray and blood work tomorrow morning and possibly discharge tomorrow. Details were discussed with the patient. ZO/MODL Voice ID: [id number] Report ID: [id number]
[2022-07-22] MEDS: ALBUTEROL 2.5 MG/3 ML NEB SOL NEB PRN (20:35)
[2022-07-22] MEDS: ROPINIROLE HCL 0.25 MG TAB PO SCH (21:13)
[2022-07-22] MEDS: ATORVASTATIN 20 MG TAB PO SCH (21:14)
[2022-07-23] MEDS: VANCOMYCIN 1.5 GM in NA CHLORIDE 0.9% 500 ML IVPB SCH (01:00)
[2022-07-23] MEDS: IPRATROPIUM BROM 0.5MG/2.5ML NEB SCH ×4 (02:00→20:00)
[2022-07-23 03:44] LABS: Potassium 3.4 mmol/L (3.5-5.1)
[2022-07-23 03:47] LABS: Absolute Lymphocytes (CBC) 1.8 K/uL (0.7-4.9); Hematocrit 25.8 % (39.6-49.0); MCV 92.3 fL (80-100); MPV 7.2 fL (7.6-11.3); RBC Red Blood Cell Count 2.79 M/uL (4.33-5.43)
[2022-07-23] MEDS: VANCOMYCIN 1.25 GM in NA CHLORIDE 0.9% 250 ML IVPB SCH ×2 (05:00→18:06)
[2022-07-23] MEDS ORDERED: NA CHLORIDE 0.9% 250 ML ONE (05:08)
[2022-07-23] MEDS ORDERED: VANCOMYCIN 1 GM/VIAL ONE (05:08)
[2022-07-23] MEDS ORDERED: VANCOMYCIN 500 MG/VIAL ONE (05:08)
[2022-07-23] MEDS: PANTOPRAZOLE 40MG TABLET PO SCH (06:30)
[2022-07-23] MEDS: ARFORMOTEROL TARTRATE 15 MCG/2 ML VIAL.NEB NEB SCH ×2 (08:00→20:00)
--- NOTE | 2022-07-23 08:06 | RAD REPORT ---
EXAM DESCRIPTION: RAD - Chest Single View - 07/23/2022 5:24 am CLINICAL HISTORY: pneumonia, COPD COMPARISON: <Comparisons> FINDINGS: Lines: None. Lungs: Emphysema. Taking into account some differences in positioning, consolidative airspace disease in the right lung base and right upper lobe is probably little changed. Pleural: Small right effusion. Cardiac: The heart size is within normal limits. Mediastinum: Within normal limits. Bones: No acute fractures. Other: None IMPRESSION: Multifocal airspace disease in the right lung likely reflecting pneumonia which is not s ignificantly changed taking into account some differences in patient positioning. Left lung remains c lear. Emphysema.
[2022-07-23] MEDS ORDERED: POTASSIUM CL SA 10 MEQ TAB PO ONE (09:00)
[2022-07-23] MEDS: MONTELUKAST 10 MG TAB PO SCH (10:22)
[2022-07-23] MEDS: ASPIRIN EC 81 MG TAB PO SCH (10:22)
[2022-07-23] MEDS: allopurinoL 100 MG TAB PO SCH (10:22)
[2022-07-23] MEDS: SERTRALINE HCL 50 MG TAB PO SCH (10:23)
[2022-07-23] MEDS: acetaZOLAMIDE 250 MG TAB PO SCH ×2 (10:23→20:29)
[2022-07-23] MEDS: predniSONE 10 MG TAB PO SCH (10:24)
[2022-07-23] MEDS: SOTALOL HCL 80 MG TAB PO SCH ×2 (10:24→20:30)
[2022-07-23] MEDS: ENOXAPARIN 40 MG/0.4 ML SQ SCH (10:25)
[2022-07-23] MEDS: ENSURE HIGH PROTEIN 237 ML CAN PO SCH ×3 (10:26→21:00)
[2022-07-23] MEDS: CEFEPIME 1 GM in NA CHLORIDE 0.9% 100 ML IV SCH ×2 (10:48→20:31)
[2022-07-23] MEDS: ALBUTEROL 2.5 MG/3 ML NEB SOL NEB PRN (16:17)
[2022-07-23] MEDS: ATORVASTATIN 20 MG TAB PO SCH (20:29)
[2022-07-23] MEDS: ROPINIROLE HCL 0.25 MG TAB PO SCH (20:30)
[2022-07-24] MEDS: IPRATROPIUM BROM 0.5MG/2.5ML NEB SCH ×4 (01:45→20:00)
[2022-07-24 04:11] LABS: Potassium 3.7 mmol/L (3.5-5.1)
[2022-07-24] MEDS: VANCOMYCIN 1.25 GM in NA CHLORIDE 0.9% 250 ML IVPB SCH ×3 (05:43→23:00)
[2022-07-24] MEDS: PANTOPRAZOLE 40MG TABLET PO SCH (05:43)
--- NOTE | 2022-07-24 07:59 | PN ---
Date of Progress Note: 07/23/2022 Subjective: The patient was seen this morning for followup. No new complaints or problems reported by the patient. Sleeping, easily arousable, not in any distress, on nasal cannula oxygen 5 L/minute, maintaining adequate oxygenation. Objective: Vital Signs: Reviewed. HEENT: Unremarkable. Lungs: Bilateral good equal entry. Presence of diminished air entry in the right lower lung region. Not using accessory muscles of respiration. No rales. Heart: Heart sounds normal. Abdomen: Soft. Bowel sounds normal. No guarding, rigidity, tenderness, distention. Extremities: No leg edema. Laboratory Data: White count 7.1, hemoglobin 8.6, platelets 283. Sodium 137, potassium 3.4, chlorid e 101, bicarb 36, BUN 14, creatinine 0.45, glucose 105. Chest x-ray unchanged from previous x-ray. Impression: 1.Pneumonia. 2.Acute exacerbation of chronic obstructive pulmonary disease. 3.Chronic respiratory failure with hypoxia, with acute exacerbation. 4.Anemia, unspecified. 5.Hypokalemia. Plan: We will replace potassium per electrolyte replacement protocol. Continue current antibiotics. Chest x-ray reviewed, appears unchanged, but it is very rotated film. We will continue current IV antibiotic, oral steroid, oxygen replacement therapy, DVT prophylaxis with Lovenox. Repeat chest x-ray PA and lateral tomorrow and then make further decision regarding po tential discharge. ZO/MODL Voice ID: [id number] Report ID: [id number]
[2022-07-24] MEDS ORDERED: POTASSIUM CL SA 10 MEQ TAB PO ONE (09:00)
[2022-07-24] MEDS: ALBUTEROL 2.5 MG/3 ML NEB SOL NEB PRN (09:05)
[2022-07-24] MEDS: ARFORMOTEROL TARTRATE 15 MCG/2 ML VIAL.NEB NEB SCH ×2 (09:05→20:00)
[2022-07-24 09:58] LABS: Arterial Blood Carboxyhemoglob 1.7 % (0-1.5); Blood Gas Oxyhemoglobin 92.7 % (94-97); Blood O2 Saturation 95.6 % (92-98.5)
[2022-07-24] MEDS: predniSONE 10 MG TAB PO SCH (10:25)
[2022-07-24] MEDS: ENOXAPARIN 40 MG/0.4 ML SQ SCH (10:25)
[2022-07-24] MEDS: SOTALOL HCL 80 MG TAB PO SCH ×2 (10:26→20:54)
[2022-07-24] MEDS: MONTELUKAST 10 MG TAB PO SCH (10:27)
[2022-07-24] MEDS: allopurinoL 100 MG TAB PO SCH (10:27)
[2022-07-24] MEDS: SERTRALINE HCL 50 MG TAB PO SCH (10:27)
[2022-07-24] MEDS: ASPIRIN EC 81 MG TAB PO SCH (10:27)
[2022-07-24] MEDS: CEFEPIME 1 GM in NA CHLORIDE 0.9% 100 ML IV SCH ×2 (10:27→20:54)
[2022-07-24] MEDS: acetaZOLAMIDE 250 MG TAB PO SCH ×2 (10:27→20:55)
[2022-07-24] MEDS: ENSURE HIGH PROTEIN 237 ML CAN PO SCH ×3 (10:31→20:56)
--- NOTE | 2022-07-24 12:16 | RAD REPORT ---
EXAM DESCRIPTION: [facility]07/24/2022 8:03 am CLINICAL HISTORY: pneumonia COMPARISON: Chest Single View dated 07/23/2022; Chest Pa And Lat (2 Views) dated 07/21/2022; Chest Sin gle View dated 07/19/2022; Chest Single View dated 07/15/2022 TECHNIQUE: PA and lateral views of the chest. FINDINGS: Stable pattern of emphysematous changes, interstitial coarsening, and architectural distor tion particularly in the right lung. Stable patchy right peripheral mid lung and confluent basilar op acities. No new focal consolidation No pneumothorax or effusion. The cardiomediastinal contours are u nremarkable. IMPRESSION: Stable multifocal right mid to lower lung opacities, concerning for pneumonia, with back ground chronic interstitial changes/COPD.
[2022-07-24] MEDS: ROPINIROLE HCL 0.25 MG TAB PO SCH (20:55)
[2022-07-24] MEDS: ATORVASTATIN 20 MG TAB PO SCH (20:55)
[2022-07-25] MEDS: IPRATROPIUM BROM 0.5MG/2.5ML NEB SCH ×4 (02:45→20:15)
[2022-07-25 04:46] LABS: Potassium 3.9 mmol/L (3.5-5.1)
[2022-07-25] MEDS: PANTOPRAZOLE 40MG TABLET PO SCH (05:51)
[2022-07-25] MEDS ORDERED: POTASSIUM CL SA 10 MEQ TAB PO ONE (06:00)
--- NOTE | 2022-07-25 07:52 | PN ---
Date of Progress Note: 07/24/2022 Subjective: The patient was seen this morning for followup. This morning, he appears weak, sleepy, and a little bit confused as was there and she reported it. Yesterday all day, says that aldo hillman was more sleepier and tired looking than usual and this is obvious change that we have seen as of y . He did ambulate with physical therapy yesterday as reported by . Objective: Vital Signs: Reviewed. HEENT: Unremarkable. Lungs: Clear to auscultation except diminished air entry with some rales noted in right lung base. Not using any accessory muscles of respiration. Heart: Sounds normal. Abdomen: Soft. Bowel sounds normal. No guarding, rigidity, tenderness, distention. Extremities: No leg edema. Laboratory Data: Chest x-ray done today shows stable multifocal right middle to lower lung opacity. Blood gas; pH 7.32, pCO2 69, pO2 79. Impression: 1.Respiratory failure, chronic, with hypoxia, with acute exacerbation. 2.Respiratory failure, acute, with hypercapnia. 3.Pneumonia. 4.Acute exacerbation of chronic obstructive pulmonary disease. Plan: We will go ahead and continue current oxygen nebulizer treatment, steroid, antibiotics, DVT pr ophylaxis with Lovenox, and I did communicate with Dr. De La Cruz and he is going to start the patient on BiPAP therapy and make arrangements for home BiPAP use. I will see him tomorrow for followup. ZO/MODL Voice ID: [id number] Report ID: [id number]
--- NOTE | 2022-07-25 08:21 | P.PN ---
Subjective Date of Service: 07/25/22 Chief Complaint: C resp failure Subjective: Improving (Pt has hypoxic hypercarbic resp failure underlying severe COPD) Review of Systems General: Weakness Respiratory: Shortness of Breath Physical Examination - Vital Signs Temperature: 97.9 F Blood Pressure: 118/55 Pulse: 65 Respirations: 16 Pulse Ox (%): 100 - Physical Exam General: Alert, Oriented x3, Moderate distress Neck: Supple Respiratory: Clear to auscultation bilaterally, Diminished Cardiovascular: No edema, Regular rate/rhythm, Normal S1 S2 Gastrointestinal: Normal bowel sounds, Soft and benign Assessment And Plan - Current Problems (Diagnosis) (1) Right lower lobe pneumonia Current Visit: Yes Status: Acute Plan: Improving cultures neg on Cefepime and Vanc/ Christine contaminant as pt has no fever and normal WBC. Sputum does shows low number of WBC Qualifiers: Aspiration pneumonia type: unspecified (2) COPD (chronic obstructive pulmonary disease) Current Visit: Yes Status: Acute Plan: Patient has a history of COPD [facility] Qualifiers: Emphysema type: unspecified (3) Chronic respiratory failure with hypoxia and hypercapnia Current Visit: Yes Status: Acute - Plan Pt has C resp failure from severe COPD. PT will benefit from NIV to prevent recurrent hospitalizations
[2022-07-25] MEDS ORDERED: CEFEPIME 1 GM/VIAL ONE (08:22)
[2022-07-25] MEDS ORDERED: NA CHLORIDE 0.9% 100 ML ONE (08:24)
[2022-07-25] MEDS: ARFORMOTEROL TARTRATE 15 MCG/2 ML VIAL.NEB NEB SCH ×2 (08:30→20:15)
[2022-07-25] MEDS: ENSURE HIGH PROTEIN 237 ML CAN PO SCH ×3 (08:47→21:00)
[2022-07-25] MEDS: ENOXAPARIN 40 MG/0.4 ML SQ SCH (08:48)
[2022-07-25] MEDS: CEFEPIME 1 GM in NA CHLORIDE 0.9% 100 ML IV SCH ×2 (08:48→21:20)
[2022-07-25] MEDS: MONTELUKAST 10 MG TAB PO SCH (08:49)
[2022-07-25] MEDS: acetaZOLAMIDE 250 MG TAB PO SCH ×2 (08:49→21:20)
[2022-07-25] MEDS: predniSONE 10 MG TAB PO SCH (08:49)
[2022-07-25] MEDS: ASPIRIN EC 81 MG TAB PO SCH (08:50)
[2022-07-25] MEDS: SERTRALINE HCL 50 MG TAB PO SCH (08:50)
[2022-07-25] MEDS: SOTALOL HCL 80 MG TAB PO SCH ×2 (08:50→21:20)
[2022-07-25] MEDS: allopurinoL 100 MG TAB PO SCH (08:50)
[2022-07-25 10:02] LABS: Arterial Blood Carboxyhemoglob 1.7 % (0-1.5); Blood Gas Oxyhemoglobin 85.7 % (94-97); Blood O2 Saturation 88.3 % (92-98.5)
[2022-07-25] MEDS: VANCOMYCIN 1.25 GM in NA CHLORIDE 0.9% 250 ML IVPB SCH (17:45)
[2022-07-25] MEDS: ROPINIROLE HCL 0.25 MG TAB PO SCH (21:20)
[2022-07-25] MEDS: ATORVASTATIN 20 MG TAB PO SCH (21:20)
--- NOTE | 2022-07-25 23:29 | PN ---
Date of Progress Note: 07/25/2022 Subjective: The patient was seen this morning for followup. He was sleeping easily, arousable. His was present with him at bedside and the patient still appears tired and sleepy compared to befo re. Objective: Vital Signs: Reviewed. HEENT: Unremarkable. Lungs: Clear to auscultation. No wheezing. No rales. Heart: Sounds normal. Abdomen: Soft. Bowel sounds normal. No guarding, rigidity, tenderness, or distention. Extremities: No leg edema. Laboratory Data: Yesterday's blood gas results reviewed with the patient. Today chemistry showed so dium 138, potassium 3.9, chloride 100, bicarb 38, BUN 14, creatinine 0.55, and glucose 103. Impression: 1.Chronic respiratory failure with hypercapnia. 2.Chronic respiratory failure with hypoxia, with acute exacerbation. 3.Pneumonia. 4.Acute exacerbation of chronic obstructive pulmonary disease. 5.Anemia. Plan: We will go ahead and continue current oxygen nebulizer treatment and steroid medication, which is prednisone. We will go ahead and discontinue his acetazolamide as it has not actually helped to prevent hypercapnia problem and at this time, there is no role for continuation of that medication as the patient will be using BiPAP therapy now. I did communicate with Dr. De La Cruz and he is planning to make arrangements for outpatient BiPAP/NIV, that is noninvasive ventilator and once this is arranged, our plan is to discharge him to go home. Details were discusse d with the patient and his . ZO/MODL Voice ID: [id number] Report ID: [id number]
[2022-07-26] MEDS: IPRATROPIUM BROM 0.5MG/2.5ML NEB SCH ×2 (02:25→08:03)
[2022-07-26] MEDS: PANTOPRAZOLE 40MG TABLET PO SCH (05:32)
[2022-07-26 05:50] LABS: Potassium 3.4 mmol/L (3.5-5.1)
[2022-07-26 06:01] LABS: Specific Gravity 1.008 (1.005-1.030); Urine Bilirubin NEGATIVE (Negative); Urine Blood Negative (Negative); Urine Clarity Clear (Clear); Urine Color Light-Yellow (Yellow); Urine Glucose NEGATIVE (Negative); Urine Protein NEGATIVE (Negative); Urine Urobilinogen Normal (Normal)
[2022-07-26] MEDS: ARFORMOTEROL TARTRATE 15 MCG/2 ML VIAL.NEB NEB SCH (08:03)
[2022-07-26 08:13] VITALS: BP 135/60; TEMP 97.5
[2022-07-26] MEDS: CEFEPIME 1 GM in NA CHLORIDE 0.9% 100 ML IV SCH (08:46)
[2022-07-26] MEDS: ENOXAPARIN 40 MG/0.4 ML SQ SCH (08:46)
[2022-07-26] MEDS ORDERED: NA CHLORIDE 0.9% 100 ML ONE (08:46)
[2022-07-26] MEDS: allopurinoL 100 MG TAB PO SCH (08:47)
[2022-07-26] MEDS: acetaZOLAMIDE 250 MG TAB PO SCH (08:47)
[2022-07-26] MEDS ORDERED: CEFEPIME 1 GM/VIAL ONE (08:47)
[2022-07-26] MEDS: ASPIRIN EC 81 MG TAB PO SCH (08:47)
[2022-07-26] MEDS: SOTALOL HCL 80 MG TAB PO SCH (08:47)
[2022-07-26] MEDS: SERTRALINE HCL 50 MG TAB PO SCH (08:48)
[2022-07-26] MEDS: MONTELUKAST 10 MG TAB PO SCH (08:48)
[2022-07-26] MEDS: ENSURE HIGH PROTEIN 237 ML CAN PO SCH (08:48)
[2022-07-26] MEDS: predniSONE 10 MG TAB PO SCH (08:50)
[2022-07-26] MEDS ORDERED: POTASSIUM CL SA 10 MEQ TAB PO ONE (09:00)
[2022-07-26 09:19] VITALS: O2SAT 88
--- NOTE | 2022-07-26 22:29 | DS ---
Date of Discharge: 07/26/2022 Disposition: Discharged to go home. Physical Examination: HEENT: Unremarkable. Lungs: Clear to auscultation. Heart: Sounds normal. Abdomen: Soft. Bowel sounds normal. No guarding, rigidity, tenderness, or distention. Extremities: No leg edema. Laboratory Data: Today sodium 135, potassium 3.4, chloride 100, bicarb 35, BUN 11, creatinine 0.51, and glucose 101. Blood gas from 07/15/2022 with pH 7.40, pCO2 48.9, pO2 91.6, and saturation 97% on 48% FiO2. Repeat blood gas on 07/24/2022 with pH 7.32, pCO2 69.4, pO2 79.6, and saturation 95% on 40 % FiO2. Last CBC from 07/23/2022 with white count 7.1, hemoglobin 8.6, and platelets 283. Initial w leena count 17.9, hemoglobin 10.6, and platelets 293. Discharge Medications And Instructions: 1.Continue all prior home medications. 2.Take Augmentin 875 mg 1 tablet by mouth 2 times a day for 10 days and doxycycline 100 mg 2 times a day for 10 days. 3.Follow up at my office next week. 4.Use noninvasive ventilator every day at nighttime along with oxygen. Hospital Course: This is an 81-year-old male patient who came into emergency room with complaints of shortness of breath and after the patient was evaluated, was admitted to the hospital. Please see unruly valenzuela H and P for more information. After the patient was admitted to the hospital by hospitalist service, I saw him next day. The patient was admitted to the hospital with pneumonia and acute exace rbation of COPD. He also has chronic respiratory failure with hypoxia and uses oxygen at home and he did have acute exacerbation of this respiratory failure with worsening of hypoxia requiring more oxy gen. The patient was given empiric IV antibiotic and IV steroid. Subsequently, his IV steroid was c hanged over to oral steroid. The patient received different antibiotics, but finally he continued to receive cefepime and vancomycin. Dr. De La Cruz from Pulmonary Service was consulted and he has recom mended to continue current antibiotic and upon discharge to send him home with Augmentin and doxycycl ine. The patient had multiple chest x-rays showing right-sided pneumonia and we also did a CAT scan of the chest, which also showed pneumonia in the right lung. There is a possibility of obstructive p rocess in his bronchi and I have advised the patient to follow up at [facility] for further evaluati on and management of this to rule out any possibility of lung cancer and the patient's is going to schedule his appointment. He has gone to [facility] once for evaluation of this and he did not f eel comfortable following up with the physician at [facility], so he is going to request a different physician to evaluate him at [facility]. About 2 to 3 days ago, he started to have more tiredness, fatigue feeling, and appeared more sleepy and repeat blood gas shows elevated carbon dioxide and at that time I talked to Dr. De La Cruz and requested BiPAP therapy to be arranged for home use and he has made arrangements for the patient to get noninvasive ventilator for home use and once all these arra ngements were completed today, the patient was discharged to go home in stable condition. Final Diagnoses: 1.Pneumonia. 2.Acute exacerbation of chronic obstructive pulmonary disease. 3.Chronic respiratory failure, with hypoxia, with acute exacerbation. 4.Chronic respiratory failure with hypercapnia. 5.Anemia, unspecified. 6.Paroxysmal atrial fibrillation. 7.Hypokalemia. 8.Hypertension. 9.Hyperlipidemia. 10.Type 2 diabetes mellitus. 11.Gout. 12.Colon cancer. 13.Allergic rhinitis. ZO/MODL Voice ID: [id number] Report ID: [id number]
== END 2022-07-26 11:39 | disposition home or self-care (01) | DRG 193 ==
LOC: ER 18:50 → 2ND 21:16
PROVIDERS: ADMIT Hospitalist; ATTEND Internal Medicine
DX: J18.9 Pneumonia, unspecified organism (principal); J96.02 Acute respiratory failure with hypercapnia; J96.21 Acute and chronic respiratory failure with hypoxia; J44.0 Chronic obstructive pulmonary disease with (acute) lower respiratory infection; J44.1 Chronic obstructive pulmonary disease with (acute) exacerbation; I10 Essential (primary) hypertension; K21.9 Gastro-esophageal reflux disease without esophagitis; E87.6 Hypokalemia; D64.9 Anemia, unspecified; E78.5 Hyperlipidemia, unspecified; J30.9 Allergic rhinitis, unspecified; I48.0 Paroxysmal atrial fibrillation; M10.9 Gout, unspecified; R04.0 Epistaxis; Z99.81 Dependence on supplemental oxygen; Z79.01 Long term (current) use of anticoagulants; Z79.899 Other long term (current) drug therapy; Z85.038 Personal history of other malignant neoplasm of large intestine; Z87.891 Personal history of nicotine dependence; Z20.822 Contact with and (suspected) exposure to COVID-19
CPT/HCPCS: 0240U; 36415; 71045; 71046; 71250; 80048; 80053; 80202; 81001; 81003; 82805; 82947; 83605; 83735; 84132; 85025; 85610; 85730; 87040; 87070; 87205; 93005; 94010; 94640; 94760; 96374; 96375; 97116; 97161; 97530; 99285; J0692; J1650; J2543; J3370; J7030; J7040; J7050; J7512; J7605; J7613; J7644